=== PATIENT | female | born 2000 | race Caucasian/White ===

== ENCOUNTER 2023-07-30 19:26 | Emergency (ER) | payer MEDICARE, OTHER, MEDICAID, SELFPAY ==
[2023-07-30 19:34] VITALS: BP 112/70; PULSE 87; PULSE 96; RESP 17; TEMP 36.7; O2SAT 96; O2SAT 97; BMI 25.8
[2023-07-30 20:34] LABS: Hematocrit 40.5 % (37.0-47.0); Hemoglobin 13.4 g/dl (12.0-16.0); Mean Corpuscular HGB Conc 33.1 g/dl (31.0-35.0); Mean Corpuscular Hemoglobin 29.3 pg (27.0-33.0); Mean Corpuscular Volume 88.6 fL (80.0-98.0); Mean Platelet Volume 10.2 fL (9.4-12.3); Platelet Count 226 X10*3/uL (160-400); Red Blood Count 4.57 X10*6/uL (4.20-5.50); Red Cell Distribution Width 13.4 % (11.0-16.0); White Blood Count 8.7 X10*3/uL (4.8-10.8)
--- NOTE | 2023-07-30 20:49 | PC.NURSE ---
Patient is alert and oriented x2, she is not able to state today's date. Patient is calm and cooperative at present. VSS. 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 Patient denies nausea/vomiting/diarrhea. Patient denies SI/HI. She changed over by cryptographic technician in presence of security, belonging list completed. Patient denies SI/HI. Labs drawn and sent to lab. 1:1 sitter at bedside.
[2023-07-30 20:54] LABS: Anion Gap 17 (12-20); Blood Urea Nitrogen 15 mg/dL (9-16); Calcium 9.6 mg/dL (8.4-10.2); Carbon Dioxide 19 mmol/L (22-29); Chloride 107 mmol/L (96-108); Creatinine Clr Calc Pharmacy 99.2; Estimated Glomerular Filt Rate > 60; Glucose Random 79 mg/dL (60-115); Potassium 4.1 mmol/L (3.3-5.1); Sodium 139 mmol/L (135-145)
--- OUTSIDE RECORDS SUMMARY | 2023-07-30 21:18 | XMS_ITS | Continuity of Care Document ---
Author Name Unknown Organization [facility] Address Unknown Care Team Providers Care Bookseamer Blindstitch Name Role Phone Noé DELA CRUZ, Windy Primary Care Physician [facility]counter [facility] Date(s): 04/08/22 - 05/08/22 [facility] Allergies, Adverse Reactions, Alerts Substance Reaction Severity Status amoxicillin-clavulanate 1 Ac tive Augmentin Active Adderall Psychomotor restless ness 07-APR-2015 22:24:19<$> Active Depakote Active LamISIL hives Active ZyPREXA extreme weight gain Active 1rash Immunizations Given and Recorded Vaccine Date Status Refusal Reason influenza virus vaccine, inactivated 08/27/21 Demetrius rded influenza virus vaccine, inactivated 07/30/20 Demetrius rded influenza virus vaccine, inactivated 09/10/19 Demetrius rded influenza virus vaccine, inactivated 1 08/26/18 Gi lottie influenza virus vaccine, inactivated 08/24/17 Demetrius rded influenza virus vaccine, inactivated 2 10/04/16 Gi lottie influenza virus vaccine, inactivated 3 08/13/15 Gi lottie influenza virus vaccine, inactivated 4 11/04/14 Gi lottie influenza virus vaccine, inactivated 08/03/13 Give n influenza virus vaccine, inactivated 5 10/16/12 Gi lottie influenza virus vaccine, inactivated 6 09/18/11 Gi lottie tetanus/diphtheria/pertussis, acel(Tdap) 05/17/21 Given tetanus/diphtheria/pertussis, acel(Tdap) 06/08/20 Given SARS-CoV-2 (COVID-19) mRNA BNT-162b2 vac 01/26/21 Recorded SARS-CoV-2 (COVID-19) mRNA-1273 vaccine 01/05/21 R ecorded meningococcal group B vaccine 7 08/26/18 Given meningococcal group B vaccine 8 02/01/18 Given Meningococcal Conjugate Vaccine 2/3/15 Given Meningococcal Conjugate Vaccine 9 12/11/09 Given Human Papillomavirus Vaccine 06/22/13 Given Human Papillomavirus Vaccine 10 02/18/13 Given Human Papillomavirus Vaccine 11 12/21/12 Given Hepatitis A Pediatric Vaccine 12 12/21/12 Given Hepatitis A Pediatric Vaccine 13 12/17/11 Given influenza virus vaccine, live 08/27/10 Given Tet/Diphth/Acel, Pertussis (oldterm) 14 12/11/09 G iven Influenza Live (intranasal) (oldterm) 09/20/09 Giv en Influenza Virus Vaccine (oldterm) 08/17/08 Given Influenza Virus Vaccine (oldterm) 09/23/07 Given Influenza Virus Vaccine (oldterm) 09/10/06 Given Influenza Virus Vaccine (oldterm) 10/20/05 Given Influenza Virus Vaccine (oldterm) 09/12/05 Given Varicella Virus Vaccine 11/26/07 Given Varicella Virus Vaccine 01/08/00 Given Diphth/Pertussis,Acel/Tetanus (oldterm) 07/08/04 G iven Diphth/Pertussis,Acel/Tetanus (oldterm) 07/24/00 G iven Diphth/Pertussis,Acel/Tetanus (oldterm) 06/26/99 G iven Diphth/Pertussis,Acel/Tetanus (oldterm) 05/06/99 G iven Diphth/Pertussis,Acel/Tetanus (oldterm) 01/14/99 G iven Measles/Mumps/Rubella Virus Vaccine 11/18/00 Given Measles/Mumps/Rubella Virus Vaccine 03/03/00 Given Pneumococcal Vaccine (oldterm) 07/24/00 Given Poliovirus Vaccine, Inactivated 07/24/00 Given Poliovirus Vaccine, Inactivated 07/08/00 Given Poliovirus Vaccine, Inactivated 05/06/99 Given Poliovirus Vaccine, Inactivated 01/14/99 Given Haemophilus B Conj Vaccine (oldterm) 03/03/00 Give n Haemophilus B Conj Vaccine (oldterm) 06/26/99 Give n Haemophilus B Conj Vaccine (oldterm) 05/06/99 Give n Haemophilus B Conj Vaccine (oldterm) 01/14/99 Give n Hepatitis B Vaccine (old term) 09/02/99 Given Hepatitis B Vaccine (old term) 01/03/99 Given Hepatitis B Vaccine (old term) 15 98 Given 1Result Comment: [08/26/2018] Gilles Cullen NP fluzone quadrivalent no preservatives [id number] 2Result Comment: [10/04/2016] Maria Luisa Marin NP 3Result Comment: [08/13/2015] Ordered by LOBITO Epps 4Result Comment: [11/04/2014] Gilles Cullen DNP 5Admin Note: private vis given screening questions negative 6Admin Note: VIS 07/10/2009 GIVEN 7Result Comment: [08/26/2018] Gilles Cullen NP 8Result Comment: [02/01/2018] Sujata Sims MD 9Admin Note: VIS 12/27/2007 GIVEN 10Admin Note: VIS 01/01/07 GIVEN 11Admin Note: vis given 01/01/07 private 12Admin Note: vis given 09/23/2011 private state 13Admin Note: vis given. 09/23/2011 14Admin Note: VIS 06/10/2006 GIVEN 15Admin Note: [facility] Medications Abilify Tablet 15 mg, By Mouth, Daily, per Psych, Maintenance, 12/03/15 8:57:35 EST Start Date: 12/03/15 Status: Ordered Aleve 220 mg oral capsule 2 capsule = 440 mg, By Mouth, Once, PRN Pain , Moderate, # 40 capsule, 1 Refills, Soft Stop, 09/17/21 10:43:00 EDT, [facility], Partial fill upon patient request if the prescription is for a schedule II opioid drug., 165, cm, 06/0... Start Date: 09/17/21 Status: Ordered Atrovent HFA Inhaler 500 mcg, Neb, 4 times a day, Refills 0, Maintenance, 03/05/22 9:22:00 EDT Start Date: 03/05/22 Status: Ordered clonazePAM 0.5 mg oral tablet = 1 mg, By Mouth, 3 times a day, 0 Refills, Maintenance, 07/16/20 18:19:00 EDT, Tablet Start Date: 07/16/20 Status: Ordered Co Q-10 100 mg oral capsule 1 capsule = 100 mg, By Mouth, Daily, # 90 capsule, 0 Refills, Maintenance, 11/27/21 13:05:00 EST, [facility], Partial fill upon patient request if the prescription is for a schedule II opioid drug., 165, cm, 10/22/21 13:21:00 EST,... Start Date: 11/27/21 Status: Ordered CO Q-10 100 MG SOFTGEL CO Q-10 100 MG SOFTGEL, 1, capsule, By Mouth, Daily, # 28 capsule, 0 Refills, 165, cm, 01/14/22 9:19:00 EST, Height, 95, kg, 03/14/21 15:50:00 EDT, Dry Weight Start Date: 02/06/22 Status: Ordered CO Q-10 100 MG SOFTGEL CO Q-10 100 MG SOFTGEL, 1, capsule, By Mouth, Daily, # 28 capsule, 5 Refills, 165, cm, 03/05/22 9:10:00 EDT, Height, 95, kg, 03/14/21 15:50:00 EDT, Dry Weight Start Date: 04/04/22 Status: Ordered CO Q-10 100 MG SOFTGEL CO Q-10 100 MG SOFTGEL, 1, capsule, By Mouth, Daily, # 28 capsule, 0 Refills, 165, cm, 03/05/22 9:10:00 EDT, Height, 95, kg, 03/14/21 15:50:00 EDT, Dry Weight Start Date: 03/07/22 Status: Ordered Daily Cristina oral tablet 1 tablet, By Mouth, Daily at bedtime, # 28 tablet, 5 Refills, Maintenance, 02/06/22 12:18:00 EST, [facility], 0, 1 tablet By Mouth Daily at bedtime, 165, cm, 01/14/22 9:19:00 EST, Height, 95, kg, 03/14/21 15:50:00 EDT, Dry Weight Start Date: 02/06/22 Status: Ordered Flonase 50 mcg/inh nasal spray 2 sprays, Nares, Both, Daily in AM, # 15.8 mL, 3 Refills, Maintenance, 09/17/21 10:43:00 EDT, NasalSpray, [facility], 2 sprays Nares, Both Daily in AM,x90 days, 165, cm, 04/30/21 9:11:00 EDT, Height, 95, kg, 03/14/21 15:50:00 EDT, Dry Weight Start Date: 09/17/21 Stop Date: 09/12/22 Status: Ordered magnesium oxide 400 mg oral tablet 1 tablet = 400 mg, By Mouth, Daily, # 7 tablet, 0 Refills, Maintenance, 03/05/22 9:20:00 EDT, Tablet, Partial fill upon patient request if the prescription is for a schedule II opioid drug. Start Date: 03/05/22 Stop Date: 03/12/22 Status: Ordered magnesium oxide 400 mg oral tablet 1 tablet = 400 mg, By Mouth, Daily, for 30 days, # 30 tablet, 8 Refills, Acute 11/03/22 10:07:00 EST, 02/06/22 10:07:00 EST, Tablet, [facility], Partial fill upon patient request if the prescription is for a schedule II opioid drug., 165,... Start Date: 02/06/22 Stop Date: 11/03/22 Status: Ordered Melatonin = 7.5 mg, Daily at bedtime, 0 Refills, Maintenance, 10/23/20 14:49:00 EST, Partial fill upon patient request Start Date: 10/23/20 Status: Ordered melatonin 10 mg oral tablet, extended release 1 tablet = 10 mg, By Mouth, Daily at bedtime, PRN as needed for sleep, # 60 tablet, 0 Refills, Maintenance, 03/05/22 9:19:00 EDT, ER Tablet, Partial fill upon patient request if the prescription is for a schedule II opioid drug. Start Date: 03/05/22 Status: Ordered Metamucil 3.4 gm/5.2 gm oral powder for reconstitution = 1.7 Gm, By Mouth, 2 times a day, PRN as needed for constipation, # 1,042 Gm, 0 Refills, Maintenance, 01/17/22 14:34:00 EST, REC Powder, [facility], Partial fill upon patient requestif the prescription is for a schedule II opioid drug.,... Start Date: 01/17/22 Status: Ordered nystatin topical 990246 u/gm cream 1 application, Topically, 2 times a day, # 15 Gm, 0 Refills, Maintenance, 12/11/21 14:45:00 EST, Cream, [facility], Partial fill upon patient request if the prescription is for a schedule II opioid drug., 1 application Topically 2 times a... Start Date: 12/11/21 Status: Ordered omeprazole 20 mg oral enteric coated capsule 1 capsule, By Mouth, Daily, # 90 capsule, 1 Refills, Maintenance, 02/18/22 20:00:00 EDT, [facility], 165, cm, 01/14/22 9:19:00 EST, Height, 95, kg, 03/14/21 15:50:00 EDT, Dry Weight Start Date: 02/18/22 Status: Ordered ondansetron 4 mg oral tablet 1 tablet = 4 mg, By Mouth, Every 8 hours, # 12 tablet, 0 Refills, Maintenance, 03/05/22 9:17:00 EDT, Tablet, Partial fill upon patient request if the prescription is for a schedule II opioid drug. Start Date: 03/05/22 Status: Ordered riboflavin 400 mg oral capsule 1 capsule = 400 mg, By Mouth, Daily, # 30 capsule, 6 Refills, Maintenance, 02/06/22 9:36:00 EST, [facility], Partial fill upon patient request if the prescription is for a schedule IIopioid drug., 165, cm, 01/14/22 9:19:00 EST, Height, 95... Start Date: 02/06/22 Stop Date: 09/04/22 Status: Ordered Seasonique oral tablet 1 tablet, By Mouth, Daily, Please keep upcoming scheduled annual appointment, # 91 tablet, 3 Refills, Maintenance, 09/16/21 11:42:00 [facility], 1 tablet By Mouth Daily,Instr:Please keep upcoming scheduled annual appointment, 165, cm,... Start Date: 09/16/21 Status: Ordered selenium sulfide 2.5% topical lotion See Instructions, for skin rash q hs locally for rash as needed, # 60 mL, 0 Refills, Maintenance, 09/25/21 9:13:00 [facility], Partial fill upon patient request if the prescription is for a schedule II opioid drug., for skin rash q hs... Start Date: 09/25/21 Status: Ordered SUMAtriptan 50 mg oral tablet 1 tablet = 50 mg, By Mouth, Once, PRN for migraine headache, take at onset of bad migraine, no refill in under 30 days, # 9 tablet, 4 Refills, Soft Stop, 05/01/22 12:04:00 EDT, Tablet, [facility], Partial fill upon patient request if the p... Start Date: 05/01/22 Status: Ordered vitamin b2 gummies vitamin b2 gummies, Refills 0, Maintenance, 03/01/19 8:41:05 EDT, Compound Start Date: 03/01/19 Status: Ordered Vitamin C 500 mg oral tablet 2 tablet, By Mouth, Daily, AT 4PM., # 56 tablet, 3 Refills, [facility], 165, cm, 01/14/22 9:19:00 EST, Height, 95, kg, 03/14/21 15:50:00 EDT, Dry Weight Start Date: 02/06/22 Status: Ordered Vitamin D3 2000 intl units oral tablet 1 tablet, By Mouth, Daily in AM, # 28 tablet, 5 Refills, [facility], 165, cm, 01/14/22 9:19:00 EST, Height, 95, kg, 03/14/21 15:50:00 EDT, Dry Weight Start Date: 02/06/22 Status: Ordered Wedge Pillow Wedge Pillow, See Instructions, # 1 each, Refills 0, Tot. Refills 0, Maintenance, Wedge pillow, about 6 to 18 inches in height, per patient preference., 01/14/22 9:24:00 EST, Supply, 165, cm, 01/14/22 9:19:00 EST, Height, 95, kg, 03/14/21 15:50:00 EDT... Start Date: 01/14/22 Status: Ordered zinc (as acetate) 25 mg oral capsule 1 capsule = 25 mg, By Mouth, Daily, # 90 capsule, 0 Refills, Maintenance, 09/30/21 14:49:00 EDT, Capsule, [facility], Partial fill upon patient request if the prescription is for a schedule II opioid drug., 165, cm, 04/30/21 9:11:00 EDT, H... Start Date: 09/30/21 Status: Ordered Problem List Condition Effective Dates Status Health Status Inform ant Ataxia(Confirmed)(Stable) Active Bipolar illness(Confirmed) Active Learning disorder(Confirmed) Active Focal nodular hyperplasia of liver(Confirmed) Active Chronic GERD(Confirmed) Active Hypotonia(Confirmed)(Stable) Active Linear atelectasis(Confirmed) Active Migraine without aura(Confirmed) Active Mitochondrial disease(Confirmed) Active Obese class I(Confirmed) Active Sensory-neural hearing loss(Confirmed)(Stable) Active Fatty liver(Confirmed) Active Social History Social History Type Response Smoking Status Never (less than 100 in lifetime) entered on: 03/14/21 Sex
--- OUTSIDE RECORDS SUMMARY | 2023-07-30 21:18 | XMS_ITS | Continuity of Care Document ---
Author Name Unknown Organization [facility] Address [address] [place] [id number] Care Team Providers Care Java Development Team Lead Name Role Phone Nicolas DOWNS, Mayda Salguero Primary Care Physician [facility] Date[facility]s): 08/26/21 - 09/25/[address] [id number] Attending Physician: Con Rodriguez Admitting Physician: Con Rodriguez Referring Physician: AdmtrCon Allergies, Adverse Reactions, Alerts Substance Reaction Severity Status amoxicillin-clavulanate 1 Ac tive Augmentin Active Adderall Psychomotor restless ness 07-APR-2015 22:24:19<$> Active Depakote Active LamISIL hives Active ZyPREXA extreme weight gain Active 1rash Immunizations Given and Recorded Vaccine Date Status Refusal Reason tetanus/diphtheria/pertussis, acel(Tdap) 05/17/21 Given tetanus/diphtheria/pertussis, acel(Tdap) 06/08/20 Given SARS-CoV-2 (COVID-19) mRNA BNT-162b2 vac 01/26/21 Recorded SARS-CoV-2 (COVID-19) mRNA-1273 vaccine 01/05/21 R ecorded influenza virus vaccine, inactivated 07/30/20 Demetrius rded [...] virus vaccine, inactivated 6 09/18/11 Gi lottie meningococcal group B vaccine 7 08/26/18 Given meningococcal group B vaccine 8 02/01/18 Given Meningococcal Conjugate Vaccine 01/02/15 Given Meningococcal Conjugate Vaccine 9 12/11/09 Given [...] Gilles Cullen NP fluzone quadrivalent no preservatives [id number] 2Result Comment: [10/04/2016] Maria Luisa Marin NP [...] 14Admin Note: VIS 06/10/2006 GIVEN 15Admin Note: [facility] Medications Abilify Tablet 15 mg, By Mouth, Daily, per Psych, Maintenance, 12/03/15 8:57:35 EST Start Date: 12/03/15 Status: Ordered Aleve = 220 mg, By Mouth, Every 12 hours, 0 Refills, Maintenance, 04/30/21 9:14:00 EDT, Partial fill uponpatient request if the prescription is for a schedule II opioid drug. Start Date: 04/30/21 Status: Ordered Aleve 220 mg oral capsule 2 capsule = 440 mg, By Mouth, Once, PRN Pain , Moderate, # 40 capsule, 1 Refills, Soft Stop, 09/17/21 10:43:00 EDT, Capsule, [facility], Partial fill upon patient request if the prescription is for a schedule II opioid drug., 165, cm, 06/0... Start Date: 09/17/21 Status: Ordered cholecalciferol 2000 intl units oral tablet = 50 mcg, By Mouth, Daily, # 100 tablet, 0 Refills, Maintenance, 09/17/21 10:42:00 EDT, Tablet, [facility], Partial fill upon patient request if the prescription is for a schedule II opioid drug., 165, cm, 04/30/21 9:11:00 EDT, Height, 95,... Start Date: 09/17/21 Status: Ordered clonazePAM 0.5 mg oral tablet = 1 mg, By Mouth, 3 times a day, 0 Refills, Maintenance, 07/16/20 18:19:00 EDT, Tablet Start Date: 07/16/20 Status: Ordered Co Q-10 = 100 mg, By Mouth, Daily, 0 Refills, Maintenance, 03/14/21 15:51:00 EDT, Partial fill upon patientrequest if the prescription is for a schedule II opioid drug. Start Date: 03/14/21 Status: Ordered CoQ10 = 2,000 mg, By Mouth, Daily, 0 Refills, Maintenance, 10/23/20 14:47:00 EST, Partial fill upon patient request Start Date: 10/23/20 Status: Ordered cyanocobalamin 1000 mcg sublingual tablet 1 tablet = 1,000 mcg, Sublingual, 2 times a day, # 60 tablet, 3 Refills, Maintenance, 09/17/21 10:43:00 EDT, Tablet, [facility], Partial fill upon patient request if the prescription is for a schedule II opioid drug., 165, cm, 04/30/21 9:1... Start Date: 09/17/21 Status: Ordered Flonase 50 mcg/inh nasal spray 2 sprays, Nares, Both, Daily in AM, # 15.8 mL, 3 Refills, Maintenance, 09/17/21 10:43:00 EDT, NasalSpray, [facility], 2 sprays Nares, Both Daily in AM,x90 days, 165, cm, 04/30/21 9:11:00 EDT, Height, 95, kg, 03/14/21 15:50:00 EDT, Dry Weight Start Date: 09/17/21 Stop Date: 09/12/22 Status: Ordered lithium 300 mg oral tablet See Instructions, 450mg 2x AM &PM 150 Afternoon, 0 Refills, Maintenance, 07/16/20 18:21:00 EDT Start Date: 07/16/20 Status: Ordered Magnesium Carbonate = 54 mg, By Mouth, Daily, 0 Refills, Maintenance, 03/14/21 15:52:00 EDT, Partial fill upon patient request if the prescription is for a schedule II opioid drug. Start Date: 03/14/21 Status: Ordered magnesium oxide 400 mg oral tablet 1 tablet = 400 mg, By Mouth, Daily, for 30 days, # 30 tablet, 6 Refills, Acute 02/11/22 15:37:00 EDT, 07/16/21 15:37:00 EDT, Tablet, [id number], Partial fill upon patient request if the prescription is for a schedule II opioid drug., 165, cm,... Start Date: 07/16/21 Stop Date: 02/11/22 Status: Ordered Melatonin = 7.5 mg, Daily at bedtime, 0 Refills, Maintenance, 10/23/20 14:49:00 EST, Partial fill upon patient request Start Date: 10/23/20 Status: Ordered Metamucil Powder 1 pack/packet, By Mouth, Daily, 0 Refills, Maintenance, 12/13/19 10:56:00 EST, Powder Start Date: 12/13/19 Status: Ordered Multivitamin By Mouth, Daily, 0 Refills, Maintenance Start Date: 06/03/13 Status: Ordered omeprazole 20 mg oral enteric coated capsule 1 capsule, By Mouth, Daily, # 90 capsule, 1 Refills, Maintenance, 09/17/21 10:43:00 EDT, [facility], 165, cm, 04/30/21 9:11:00 EDT, Height, 95, kg, 03/14/21 15:50:00 EDT, Dry Weight Start Date: 09/17/21 Status: Ordered Seasonique oral tablet 1 tablet, By Mouth, Daily, Please keep upcoming scheduled annual appointment, # 91 tablet, 3 Refills, Maintenance, 09/16/21 11:42:00 EDT, [facility], 1 tablet By Mouth Daily,Instr:Please keep upcoming scheduled annual appointment, 165, cm,... Start Date: 09/16/21 Status: Ordered selenium sulfide 2.5% topical lotion See Instructions, for skin rash q hs locally for rash as needed, # 60 mL, 0 Refills, Maintenance, 09/25/21 9:13:00 EDT, [facility], Partial fill upon patient request if the prescription is for a schedule II opioid drug., for skin rash q hs... Start Date: 09/25/21 Status: Ordered SUMAtriptan 50 mg oral tablet 1 tablet = 50 mg, By Mouth, Daily, PRN for migraine headache, # 9 tablet, 6 Refills, Soft Stop, 11/08/20 8:21:00 EST, Tablet, [id number], increasing the dose, 165, cm, 10/23/20 14:38:00 EST, Height, 95.5, kg, 09/24/20 15:41:00 EDT, Dry Weight Start Date: 11/08/20 Stop Date: 06/06/21 Status: Ordered vitamin b2 gummies vitamin b2 gummies, Refills 0, Maintenance, 03/01/19 8:41:05 EDT, Compound Start Date: 03/01/19 Status: Ordered Vitamin C 500 mg oral tablet 2 tablet = 1,000 mg, By Mouth, Daily, # 60 tablet, 0 Refills, Maintenance, 09/17/21 10:42:00 EDT, Tablet, [facility], Partial fill upon patient request if the prescription is for a schedule II opioid drug., 165, cm, 04/30/21 9:11:00 EDT, H... Start Date: 09/17/21 Status: Ordered zinc (as acetate) 25 mg oral capsule 1 capsule = 25 mg, By Mouth, Daily, 0 Refills, Maintenance, 10/23/20 14:55:00 EST, Partial fill upon patient request Start Date: 10/23/20 Status: Ordered Problem List Condition Effective Dates Status Health Status Inform ant Ataxia(Confirmed)(Stable) Active Bipolar illness(Confirmed) Active Learning disorder(Confirmed) Active Fatigue(Confirmed)(Stable) Active Chronic GERD(Confirmed) Active Hypotonia(Confirmed)(Stable) Active Linear atelectasis(Confirmed) Active Migraine without aura(Confirmed) Active Mitochondrial disease(Confirmed) Active Onychomycosis(Confirmed) Active Encounter for preventive care(Confirmed) Active RUQ abdominal pain(Confirmed) Active Sensory-neural hearing loss(Confirmed)(Stable) Active Social History Social History Type Response Smoking Status Never (less than 100 in lifetime) entered on: 03/14/21 Sex
--- OUTSIDE RECORDS SUMMARY | 2023-07-30 21:18 | XMS_ITS | Continuity of Care Document ---
Author Name Unknown Organization [facility] Address [address] [facility], [address]r d Floor, [address] [place] [phone]- Care Team Providers Care Waste Machine Tender Name Role Phone Mayda Valenzuela MD Primary Care Physician [place] [facility] [place] 12/13/20 - 12/20/20 [facility] [address], [address], [address] [place] [address]- Attending Physician: Sofia Felix MD Referring Physician: Mayda Valenzuela MD Allergies, Adverse Reactions, Alerts Substance Reaction Severity Status amoxicillin-clavulanate 1 Ac tive Adderall Psychomotor restless ness 07-APR-2015 22:24:19<$> Active Depakote Active LamISIL hives Active ZyPREXA extreme weight gain Active 1rash Immunizations Given and Recorded Vaccine Date Status Refusal Reason tetanus/diphtheria/pertussis, acel(Tdap) 06/08/20 Given meningococcal group B vaccine 1 08/26/18 Given meningococcal group B vaccine 2 02/01/18 Given influenza virus vaccine, inactivated 3 08/26/18 Gi lottie influenza virus vaccine, inactivated 4 10/04/16 Gi lottie influenza virus vaccine, inactivated 5 08/13/15 Gi lottie influenza virus vaccine, inactivated 6 11/04/14 Gi lottie influenza virus vaccine, inactivated 08/03/13 Give n influenza virus vaccine, inactivated 7 10/16/12 Gi lottie influenza virus vaccine, inactivated 8 09/18/11 Gi lottie Meningococcal Conjugate Vaccine 01/02/15 Given Meningococcal Conjugate [...] Given 1Result Comment: [08/26/2018] Gilles Cullen NP 2Result Comment: [02/01/2018] Sujata Sims MD 3Result Comment: [08/26/2018] Gilles Cullen NP fluzone quadrivalent no preservatives [id number] 4Result Comment: [10/04/2016] Maria Luisa Marin CHEESE MAKER 5Result Comment: [08/13/2015] Ordered by LOBITO Epps 6Result Comment: [11/04/2014] Gilles Cullen DNP 7Admin Note: private vis given screening questions negative 8Admin Note: VIS 07/10/2009 GIVEN 9Admin Note: VIS 12/27/2007 GIVEN 10Admin Note: VIS 01/01/07 GIVEN 11Admin Note: vis given 01/01/07 private 12Admin Note: vis given 09/23/2011 private state 13Admin Note: vis given. 09/23/2011 14Admin Note: VIS 06/10/2006 GIVEN 15Admin Note: [facility] Medications Abilify Tablet 15 mg, By Mouth, Daily, per Psych, Maintenance, 12/03/15 8:57:35 EST Start Date: 12/03/15 Status: Ordered Aleve 220 mg oral capsule 2 capsule = 440 mg, By Mouth, Once, 0 Refills, Maintenance, 10/23/20 14:46:00 EST, Capsule, Partialfill upon patient request Start Date: 10/23/20 Status: Ordered clonazePAM 0.5 mg oral tablet = 1 mg, By Mouth, 3 times a day, 0 Refills, Maintenance, 07/16/20 18:19:00 EDT, Tablet Start Date: 07/16/20 Status: Ordered CoQ10 = 2,000 mg, By Mouth, Daily, 0 Refills, Maintenance, 10/23/20 14:47:00 EST, Partial fill upon patient request Start Date: 10/23/20 Status: Ordered Flonase 50 mcg/inh nasal spray 1 sprays = 50 mcg, Nares, Both, Daily in AM, # 15.8 mL, 1 Refills, Maintenance, 10/07/18 15:51:43 EST, Nasal [place] Start Date: 10/07/18 Stop Date: 04/05/19 Status: Ordered lithium 300 mg oral tablet See Instructions, 450mg 2x AM &PM 150 Afternoon, 0 Refills, Maintenance, 07/16/20 18:21:00 EDT Start Date: 07/16/20 Status: Ordered Melatonin = 7.5 mg, Daily at bedtime, 0 Refills, Maintenance, 10/23/20 14:49:00 EST, Partial fill upon patient request Start Date: 10/23/20 Status: Ordered Metamucil Powder 1 pack/packet, By Mouth, Daily, 0 Refills, Maintenance, 12/13/19 10:56:00 EST, Powder Start Date: 12/13/19 Status: Ordered MiraLax = 17 Gm, By Mouth, Daily, 0 Refills, Maintenance, 07/16/20 18:22:00 EDT Start Date: 07/16/20 Status: Ordered Multivitamin By Mouth, Daily, 0 Refills, Maintenance Start Date: 06/03/13 Status: Ordered omeprazole 20 mg oral delayed release tablet 1 tablet = 20 mg, By Mouth, Daily, # 30 tablet, 2 Refills, Maintenance, 11/17/20 13:07:00 EST, EC Tablet, [facility]/pharmacy #[id number], 165, cm, 10/23/20 14:38:00 EST, Height, 95.5, kg, 09/24/20 15:41:00 EDT, Dry Weight Start Date: 11/17/20 Status: Ordered Seasonique oral tablet 1 tablet, By Mouth, Daily, Please keep upcoming scheduled annual appointment, # 91 tablet, 4 Refills, Maintenance, 01/02/20 14:53:00 EST, [id number], 1 tablet By Mouth Daily,Instr:Please keepupcoming scheduled annual appointment, 166, cm, ... Start Date: 01/02/20 Status: Ordered SUMAtriptan 50 mg oral tablet 1 tablet = 50 mg, By Mouth, Daily, PRN for migraine headache, # 9 tablet, 6 Refills, Soft Stop, 11/08/20 8:21:00 EST, Tablet, [facility]/pharmacy #[id number], increasing the dose, 165, cm, 10/23/20 14:38:00 EST, Height, 95.5, kg, 09/24/20 15:41:00 EDT, Dry Weight Start Date: 11/08/20 Stop Date: 06/06/21 Status: Ordered Vitamin B12 = 1,000 mcg, 2 times a day, 0 Refills, Maintenance, 08/04/19 10:32:43 EDT Start Date: 08/04/19 Status: Ordered vitamin b2 gummies vitamin b2 gummies, Refills 0, Maintenance, 03/01/19 8:41:05 EDT, Compound Start Date: 03/01/19 Status: Ordered Vitamin C 500 mg oral tablet 2 tablet = 1,000 mg, By Mouth, Daily, # 30 tablet, 0 Refills, Maintenance, 07/16/20 18:22:00 EDT, Tablet Start Date: 07/16/20 Status: Ordered Vitamin D3 = 50 mcg, By Mouth, Daily, 0 Refills, Maintenance, 10/23/20 14:53:00 EST, Partial fill upon patientrequest Start Date: 10/23/20 Status: Ordered zinc (as acetate) 25 mg oral capsule 1 capsule = 25 mg, By Mouth, Daily, 0 Refills, Maintenance, 10/23/20 14:55:00 EST, Partial fill upon patient request Start Date: 10/23/20 Status: Ordered Zithromax Z-Kamran 250 mg oral tablet 1 pack/packet, By Mouth, Once, as directed on package labeling. 2 tablets first day, then one p.o daily, # 6 tablet, 0 Refills, Soft Stop, 08/28/20 8:08:00 EDT, Tablet, [facility]/pharmacy #[id number], 165, cm, 08/14/20 10:25:00 EDT, Height, 95, kg, 07/18/20 14:03... Start Date: 08/28/20 Status: Ordered Problem List Condition Effective Dates Status Health Status Inform ant Ataxia(Confirmed)(Stable) Active Bipolar illness(Confirmed) Active Learning disorder(Confirmed) Active Fatigue(Confirmed)(Stable) Active Chronic GERD(Confirmed) Active Hypotonia(Confirmed)(Stable) Active Linear atelectasis(Confirmed) Active Migraine without aura(Confirmed) Active Mitochondrial disease(Confirmed) Active Onychomycosis(Confirmed) Active Encounter for preventive care(Confirmed) Active RUQ abdominal pain(Confirmed) Active Sensory-neural hearing loss(Confirmed)(Stable) Active
--- OUTSIDE RECORDS SUMMARY | 2023-07-30 21:18 | XMS_ITS | Continuity of Care Document ---
Author Name Unknown Organization [facility] Address [address] [facility], [address] [place] [address]- Care Team Providers Care Aircraft Pneudraulic Systems Mechanic Name Role Phone Noé DELA CRUZ, Windy Primary Care Physician Encounter [facility] Date(s): 02/13/22 - 03/15/22 [facility] [address] [facility], [address] [place] [address]- Allergies, Adverse Reactions, Alerts Substance Reaction Severity [...] Gilles Cullen NP fluzone quadrivalent no preservatives [id number] 2Result Comment: [10/04/2016] Maria Luisa Marin NP [...] 14Admin Note: VIS 06/10/2006 GIVEN 15Admin Note: [facility] Medications Abilify Tablet 15 mg, By [...] capsule, 0 Refills, Maintenance, 11/27/21 13:05:00 EST, Capsule, [facility], Partial fill upon [...] Start Date: 01/17/22 Status: Ordered nystatin topical 383664 u/gm cream 1 application, Topically, 2 times [...] 1 Refills, Maintenance, 02/18/22 20:00:00 EDT, [facility], 165, cm, 01/14/22 9:19:00 EST, Height, [...] 6 Refills, Maintenance, 02/06/22 9:36:00 EST, [facility], Partial fill upon patient [...] q hs... Start Date: 09/25/21 Status: Ordered vitamin b2 gummies vitamin b2 gummies, Refills 0, Maintenance, 03/01/19 8:41:05 EDT, Compound Start Date: 03/01/19 Status: Ordered Vitamin C 500 mg oral tablet 2 tablet, By Mouth, Daily, AT 4PM., # 56 tablet, 3 Refills, [facility], 165, cm, 01/14/22 9:19:00 EST, Height, 95, kg, 03/14/21 15:50:00 EDT, Dry Weight Start Date: 02/06/22 Status: Ordered Vitamin D3 2000 intl units oral tablet 1 tablet, By Mouth, Daily in AM, # 28 tablet, 5 Refills, [facility], 165, cm, 01/14/22 9:19:00 EST, Height, 95, [...]
--- OUTSIDE RECORDS SUMMARY | 2023-07-30 21:18 | XMS_ITS | Continuity of Care Document ---
Author Name Unknown Organization [facility] Address [address] [facility], [address] Floor, [address] [place] [address]- Care Team Providers Care Faculty Neuropsychologist Name Role Phone Mayda Valenzuela MD Primary Care Physician [place] [facility] [place] 11[place]20 - 11/15/20 [facility] [address], [address], [address] [place] [address]- Attending Physician: Sofia Felix MD Referring Physician: [...] Gilles Cullen NP fluzone quadrivalent no preservatives [id number] 4Result Comment: [10/04/2016] Maria Luisa Marin TECHNICAL DIRECTOR 5Result Comment: [08/13/2015] Ordered by LOBITO Epps 6Result Comment: [11/04/2014] Gilles Cullen DNP 7Admin Note: private vis given screening questions negative 8Admin Note: VIS 07/10/2009 GIVEN 9Admin Note: VIS 12/27/2007 GIVEN 10Admin Note: VIS 01/01/07 GIVEN 11Admin Note: vis given 01/01/07 private 12Admin Note: vis given 09/23/2011 private state 13Admin Note: vis given. 09/23/2011 14Admin Note: VIS 06/10/2006 GIVEN 15Admin Note: [facility] Medications Abilify Tablet 15 mg, By Mouth, Daily, per Psych, Maintenance, 12/03/15 8:57:35 EST Start Date: 12/03/15 Status: Ordered Aleve 220 mg oral capsule 2 capsule = 440 mg, By Mouth, Once, 0 Refills, Maintenance, 10/23/20 14:46:00 EST, Capsule, Partialfill upon patient request Start Date: 10/23/20 Status: Ordered clonazePAM 0.5 mg oral tablet 1 tablet = 0.5 mg, By Mouth, 2 times a day, 0 Refills, Maintenance, 07/16/20 18:19:00 EDT, Tablet Start Date: 07/16/20 Status: Ordered CoQ10 = 2,000 mg, By Mouth, Daily, 0 Refills, Maintenance, 10/23/20 14:47:00 EST, Partial fill upon patient request Start Date: 10/23/20 Status: Ordered Flonase 50 mcg/inh nasal spray 1 sprays = 50 mcg, Nares, Both, Daily in AM, # 15.8 mL, 1 Refills, Maintenance, 10/07/18 15:51:43 EST, Nasal [place] Start Date: 10/07/18 Stop Date: 04/05/19 Status: Ordered lithium 300 mg oral tablet 1 tablet = 300 mg, By Mouth, 2 times a day, 0 Refills, Maintenance, 07/16/20 18:21:00 EDT Start [...] Daily, # 30 tablet, 0 Refills, Maintenance, 10/08/20 8:28:00 EST, EC Tablet, [facility]/pharmacy #[id number], 165, cm, 09/24/20 15:41:00 EDT, Height, 95.5, kg, 09/24/20 15:41:00 EDT, Dry Weight Start Date: 10/08/20 Status: Ordered Seasonique oral tablet 1 tablet, By Mouth, Daily, Please keep upcoming scheduled annual appointment, # 91 tablet, 4 Refills, Maintenance, 01/02/20 14:53:00 EST, [facility]/pharmacy #[id number], 1 tablet By Mouth Daily,Instr:Please keepupcoming scheduled annual appointment, 166, cm, ... Start Date: 01/02/20 Status: Ordered SUMAtriptan 50 mg oral tablet 1 tablet = 50 mg, By Mouth, Daily, PRN for migraine headache, # 9 tablet, 6 Refills, Soft Stop, 11/08/20 8:21:00 EST, Tablet, [facility]/pharmacy #[id number], increasing the dose, 165, cm, 10/23/20 [...] Refills, Soft Stop, 08/28/20 8:08:00 EDT, Tablet, [facility]/pharmacy #[id number], 165, cm, 08/14/20 10:25:00 EDT, Height, [...]
--- OUTSIDE RECORDS SUMMARY | 2023-07-30 21:18 | XMS_ITS | Continuity of Care Document ---
Author Name Unknown Organization [facility] Address [address] [place] [address]- Care Team Providers Care Nuclear Equipment Operator Name Role Phone Noé DELA CRUZ, Windy Primary Care Physician Encounter [facility] [place] Date(s): 04/18/22 - 05/18/[address] [address] Attending Physician: Con Rodriguez Admitting Physician: AdmCon tang Referring Physician: Admtr, ArAshvin Allergies, Adverse Reactions, Alerts Substance Reaction Severity Status amoxicillin-clavulanate 1 Ac tive Augmentin Active Adderall Psychomotor restless ness 07-APR-2015 22:24:19<$> Active Depakote Active LamISIL hives Active ZyPREXA extreme weight gain Active SEROquel 2 Active 1rash 2elevates liver enzymes Immunizations Given and Recorded Vaccine Date Status [...] Gilles Cullen NP fluzone quadrivalent no preservatives [id number] 2Result Comment: [10/04/2016] Maria Luisa Marin NP [...] 14Admin Note: VIS 06/10/2006 GIVEN 15Admin Note: [facility] Medications Abilify Tablet 15 mg, By Mouth, Daily, per Psych, Maintenance, 12/03/15 8:57:35 EST Start Date: 12/03/15 Status: Ordered Aleve 220 mg oral capsule 2 capsule = 440 mg, By Mouth, Once, PRN Pain , Moderate, # 40 capsule, 1 Refills, Soft Stop, 09/17/21 10:43:00 EDT, Capsule, [facility], Partial fill [...] Start Date: 01/17/22 Status: Ordered nystatin topical 845267 u/gm cream 1 application, Topically, 2 times [...] capsule, 0 Refills, Maintenance, 09/30/21 14:49:00 EDT, [facility], Partial fill [...]
--- OUTSIDE RECORDS SUMMARY | 2023-07-30 21:18 | XMS_ITS | Continuity of Care Document ---
Author Name Unknown Organization [facility] Address [address] [facility], [address]t [place] [address]- Care Team Providers Care Dental Equipment Mechanic Name Role Phone Nicolas DOWNS, Mayda Salguero Primary Care Physician [place] [facility] [place]14[place]21 - 04/13/21 [facility] [employer] [address] [facility], [address] [place], [place] [address] Attending Physician: Con Rodriguez Admitting Physician: AdmCon tang Referring Physician: AdmtrCon Allergies, Adverse Reactions, Alerts [...] Gilles Cullen NP fluzone quadrivalent no preservatives [id number] 4Result Comment: [10/04/2016] Maria Luisa Marin NP 5Result Comment: [08/13/2015] Ordered by LOBITO Epps 6Result Comment: [11/04/2014] Gilles Cullen DNP 7Admin Note: private vis given screening questions negative 8Admin Note: VIS 07/10/2009 GIVEN 9Admin Note: VIS 12/27/2007 GIVEN 10Admin Note: VIS 01/01/07 GIVEN 11Admin Note: vis given 01/01/07 private 12Admin Note: vis given 09/23/2011 private state 13Admin Note: vis given. 09/23/2011 14Admin Note: VIS 06/10/2006 GIVEN 15Admin Note: [facility] Medications Abilify Tablet 15 mg, [...] AM, # 15.8 mL, 3 Refills, Maintenance, 02/12/21 13:51:00 EDT, NasalSpray, [facility]/pharmacy #[id number], 2 sprays Nares, Both Daily in AM,x90 days, 165, cm, 10/23/20 14:38:00 EST, Height, 95.5, kg, 09/24/20 15:41:00 EDT, Dry Weight Start Date: 02/12/21 Stop Date: 02/07/22 Status: Ordered lithium 300 mg oral tablet See Instructions, 450mg 2x AM &PM 150 Afternoon, 0 Refills, Maintenance, 07/16/20 18:21:00 EDT Start Date: 07/16/20 Status: Ordered Magnesium Carbonate = 54 mg, By Mouth, Daily, 0 Refills, Maintenance, 03/14/21 15:52:00 EDT, Partial fill upon patient request if the prescription is for a schedule II opioid drug. Start Date: 03/14/21 Status: Ordered Melatonin = 7.5 mg, Daily [...] Daily, # 30 tablet, 2 Refills, Maintenance, 02/24/21 17:36:00 EDT, EC Tablet, [facility]/pharmacy #[id number], 165, cm, 10/23/20 14:38:00 EST, Height, 95.5, kg, 09/24/20 15:41:00 EDT, Dry Weight Start Date: 02/24/21 Status: Ordered Seasonique oral tablet 1 tablet, By Mouth, Daily, Please keep upcoming scheduled annual appointment, # 91 tablet, 3 Refills, Maintenance, 03/14/21 15:58:00 EDT, [facility]/pharmacy #[id number], 1 tablet By Mouth Daily,Instr:Please keepupcoming scheduled annual appointment, 165, cm, 04/... Start Date: 03/14/21 Status: Ordered SUMAtriptan 50 mg oral tablet 1 tablet = 50 mg, By Mouth, Daily, PRN for migraine headache, # 9 tablet, 6 Refills, Soft Stop, 11/08/20 8:21:00 EST, Tablet, [facility]/pharmacy #[id number], increasing the dose, 165, cm, 10/23/20 [...] Refills, Soft Stop, 08/28/20 8:08:00 EDT, Tablet, [facility]/pharmacy #[id number], 165, cm, 08/14/20 10:25:00 EDT, Height, [...]
--- OUTSIDE RECORDS SUMMARY | 2023-07-30 21:18 | XMS_ITS | Continuity of Care Document ---
Author Name Unknown Organization [facility] Address [address] [place] [address]- Care Team Providers Care Hazardous Materials Analyst Name Role Phone Tomasa DOWNS, Ulises Primary Care Physici an Encounter [facility] [place] Date(s): 01/09/22 - 02/09/22 [facility] [address] [address] Attending Physician: Soumya Campos MD Admitting Physician: Soumya Campos MD Referring Physician: Ulises Randolph MD Allergies, Adverse Reactions, Alerts Substance Reaction Severity Status amoxicillin-clavulanate 1 Ac tive Augmentin Active Adderall Psychomotor restless ness 07-APR-2015 22:24:19<$> Active ZyPREXA extreme weight gain Active Depakote Active LamISIL hives Active 1rash Immunizations Given and Recorded Vaccine [...] Gilles Cullen NP fluzone quadrivalent no preservatives [id number] 2Result Comment: [10/04/2016] Maria Luisa Marin NP [...] 14Admin Note: VIS 06/10/2006 GIVEN 15Admin Note: [facility] Medications Abilify Tablet 15 mg, By Mouth, [...] cm, 06/0... Start Date: 09/17/21 Status: Ordered clonazePAM 0.5 [...] Dry Weight Start Date: 02/06/22 Status: Ordered Daily Cristina oral tablet 1 [...] Date: 09/17/21 Stop Date: 09/12/22 Status: Ordered ipratropium nasal 21 mcg/inh spray 2 sprays, Nares, Both, 2 times a day, # 30 mL, 1 Refills, Acute 02/11/22 9:24:00 EDT, 01/14/22 9:23:00 EST, [place], [facility], Partial fill upon patient request if the prescription isfor a schedule II opioid drug., 2 sprays Nares, Both 2... Start Date: 01/14/22 Stop Date: 02/11/22 Status: Ordered magnesium oxide 400 mg oral [...] request Start Date: 10/23/20 Status: Ordered Metamucil 3.4 gm/5.2 gm oral powder for reconstitution = 1.7 Gm, By Mouth, 2 times a day, PRN as needed for constipation, # 1,042 Gm, 0 Refills, Maintenance, 01/17/22 14:34:00 EST, REC Powder, [facility], Partial fill upon patient requestif the prescription is for a schedule II opioid drug.,... Start Date: 01/17/22 Status: Ordered nystatin topical 880601 u/gm cream 1 application, Topically, 2 times [...] Dry Weight Start Date: 09/17/21 Status: Ordered riboflavin 400 mg oral capsule [...] 4PM., # 56 tablet, 3 Refills, [facility], 165, cm, 01/14/22 9:19:00 EST, Height, 95, kg, 03/14/21 15:50:00 EDT, Dry Weight Start Date: 02/06/22 Status: Ordered Vitamin D3 2000 intl units oral tablet 1 tablet, By Mouth, Daily in AM, # 28 tablet, 5 Refills, [facility], 165, cm, 01/14/22 9:19:00 EST, Height, 95, [...]
--- OUTSIDE RECORDS SUMMARY | 2023-07-30 21:18 | XMS_ITS | Continuity of Care Document ---
Author Name Unknown Organization [facility] Address [address] [facility], [address] [place] [address]- Care Team Providers Care Hand Candy Cutter Name Role Phone Nicolas DOWNS, Mayda Salguero Primary Care Physician Encounter [facility] Date(s): 12/27/20 - 01/26/21 [facility] [address] [facility], [address] [place], [place] [address] Allergies, Adverse Reactions, Alerts Substance Reaction Severity [...] Gilles Cullen NP fluzone quadrivalent no preservatives [id number] 4Result Comment: [10/04/2016] Maria Luisa Marin CREMATOR 5Result Comment: [08/13/2015] Ordered by LOBITO Epps 6Result Comment: [11/04/2014] Gilles Cullen DNP 7Admin Note: private vis given screening questions negative 8Admin Note: VIS 07/10/2009 GIVEN 9Admin Note: VIS 12/27/2007 GIVEN 10Admin Note: VIS 01/01/07 GIVEN 11Admin Note: vis given 01/01/07 private 12Admin Note: vis given 09/23/2011 private state 13Admin Note: vis given. 09/23/2011 14Admin Note: VIS 06/10/2006 GIVEN 15Admin Note: [facility] Medications Abilify Tablet 15 mg, By [...] 1 Refills, Maintenance, 10/07/18 15:51:43 EST, Nasal [place] Start Date: 10/07/18 Stop Date: 04/05/19 Status: [...] Refills, Maintenance, 11/17/20 13:07:00 EST, EC Tablet, [facility]/pharmacy #[id number], 165, cm, 10/23/20 14:38:00 EST, [...] Refills, Soft Stop, 11/08/20 8:21:00 EST, Tablet, [facility]/pharmacy #[id number], increasing the dose, 165, cm, [...] Refills, Soft Stop, 08/28/20 8:08:00 EDT, Tablet, [facility]/pharmacy #[id number], 165, cm, 08/14/20 10:25:00 EDT, [...]
--- OUTSIDE RECORDS SUMMARY | 2023-07-30 21:18 | XMS_ITS | Continuity of Care Document ---
Author Name Unknown Organization [facility] Address [address] [place] [address]- Care Team Providers Care Masonry Installer Name Role Phone Noé DELA CRUZ, Windy Primary Care Physician Encounter [facility] Date(s): 04/23/22 - 05/23/22 [facility] [address] [id number] Allergies, Adverse Reactions, Alerts Substance Reaction Severity [...] Gilles Cullen NP fluzone quadrivalent no preservatives [id number] 2Result Comment: [10/04/2016] Maria Luisa Marin NP [...] 14Admin Note: VIS 06/10/2006 GIVEN 15Admin Note: [facility] Medications Abilify Tablet 15 mg, By [...] 3 times a day, 0 Refills, Maintenance, 08/17/20 18:19:00 EDT, Tablet Start Date: 07/16/20 Status: [...] Start Date: 01/17/22 Status: Ordered nystatin topical 478790 u/gm cream 1 application, Topically, 2 times [...] 30 capsule, 6 Refills, Maintenance, 02/06/22 9:36:[facility], Partial fill upon patient request if the prescription is for a schedule IIopioid drug., 165, cm, 01/14/22 9:19:00 EST, Height, 95... Start Date: 02/06/22 Stop Date: 09/04/22 Status: Ordered Seasonique oral tablet 1 tablet, By Mouth, Daily, Please keep upcoming scheduled annual appointment, # 91 tablet, 3 Refills, Maintenance, 09/16/21 11:42:[facility], 1 tablet By Mouth Daily,Instr:Please [...] II opioid drug., 165, cm, 04/30/21 9:11:00 Kenny MCKEON. Start Date: 09/30/21 Status: Ordered Problem List [...]
--- OUTSIDE RECORDS SUMMARY | 2023-07-30 21:18 | XMS_ITS | Continuity of Care Document ---
Author Name Unknown Organization [facility] Address [address] [place] [phone]- Care Team Providers Care Import And Export Clerk Name Role Phone Nicolas DOWNS, Mayda Salguero Primary Care Physician Encounter [facility] Date(s): 08/22/21 - 09/21/21 [facility] [address] [place] [id number]- [place] Allergies, Adverse Reactions, Alerts Substance Reaction Severity [...] Gilles Cullen NP fluzone quadrivalent no preservatives [id number] 2Result Comment: [10/04/2016] Maria Luisa Marin NP [...] 14Admin Note: VIS 06/10/2006 GIVEN 15Admin Note: [facility] Medications Abilify Tablet 15 mg, [...] a schedule II opioid drug., 165, cm, ... Start Date: 09/17/21 Status: Ordered cholecalciferol 2000 [...] tablet, 3 Refills, Maintenance, 09/17/21 10:43:00 EDT, [facility], Partial fill upon patient request [...] 02/11/22 15:37:00 EDT, 07/16/21 15:37:00 EDT, Tablet, [facility]/pharmacy #[id number], Partial fill upon patient request if the prescription is for a schedule II opioid drug., 165, cm,... Start Date: 07/16/21 Stop Date: 02/11/22 Status: Ordered Melanol = 7.5 mg, Topically, 2 times a day, 0 Refills, Maintenance, 04/30/21 9:13:00 EDT, Partial fill uponpatient request if the prescription is for a schedule II opioid drug. Start Date: 04/30/21 Status: Ordered Melatonin = 7.5 mg, Daily [...] 165, cm,... Start Date: 09/16/21 Status: Ordered SUMAtriptan 50 mg oral tablet 1 tablet = 50 mg, By Mouth, Daily, PRN for migraine headache, # 9 tablet, 6 Refills, Soft Stop, 11/08/20 8:21:00 EST, Tablet, [id number], increasing the dose, 165, cm, 10/23/20 14:38:00 EST, Height, 95.5, kg, 09/24/20 15:41:00 EDT, Dry Weight Start Date: 11/08/20 Stop Date: 06/06/21 Status: Ordered Tylenol 325 mg oral tablet 650 mg, 2, tablet, By Mouth, Every 4 hours, PRN, # 50 tablet, Refills 0, Tot. Refills 0, Acute 09/23/21 10:43:00 EDT, for fever, 09/17/21 10:42:00 EDT, Route to Pharmacy Electronically, [facility], Partial fill upon patient request if the... Start Date: 09/17/21 Stop Date: 09/23/21 Status: Ordered vitamin b2 gummies vitamin b2 [...]
--- OUTSIDE RECORDS SUMMARY | 2023-07-30 21:18 | XMS_ITS | Continuity of Care Document ---
Author Name Unknown Organization [facility] Address [address] [place] [phone]- Care Team Providers Care Freight Traffic Consultant Name Role Phone Mayda Valenzuela MD Primary Care Physician Encounter [facility] [place] [place] Date(s): 12/21/19 - 04/19/20 [facility] [address] [place] [phone]- [facility] Attending Physician: Mena Mancera NP Admitting Physician: Mena Mancera NP Referring Physician: Mayda Valenzuela MD Allergies, Adverse Reactions, Alerts Substance Reaction Severity Status Adderall Psychomotor restlessness 07-APR-2015 22:2 4:19<$> Active LamISIL hives Active ZyPREXA extreme weight gain Active Immunizations Given and Recorded Vaccine Date Status Refusal Reason meningococcal group B vaccine 1 08/26/18 Given meningococcal group B vaccine 2 02/01/18 Given influenza virus vaccine, inactivated 3 08/26/18 Gi lottie influenza virus vaccine, inactivated 4 10/04/16 Gi lotite influenza virus vaccine, inactivated 5 08/13/15 Gi [...] Gilles Cullen NP fluzone quadrivalent no preservatives [id number] 4Result Comment: [10/04/2016] Maria Luisa Tomas ELECTROTYPER APPRENTICE 5Result Comment: [08/13/2015] Ordered by LOBITO Epps 6Result Comment: [11/04/2014] Gilles Cullen DNP 7Admin Note: private vis given screening questions negative 8Admin Note: VIS 07/10/2009 GIVEN 9Admin Note: VIS 12/27/2007 GIVEN 10Admin Note: VIS 01/01/07 GIVEN 11Admin Note: vis given 01/01/07 private 12Admin Note: vis given 09/23/2011 private state 13Admin Note: vis given. 09/23/2011 14Admin Note: VIS 06/10/2006 GIVEN 15Admin Note: [facility] Medications Abilify Tablet 15 mg, By Mouth, 2 times a day, per Psych, Maintenance, 12/03/15 8:57:35 EST Start Date: 12/03/15 Status: Ordered clonazePAM 1 mg oral tablet 1 tablet = 1 mg, By Mouth, 2 times a day, 0 Refills, Maintenance, 02/14/19 15:49:34 EDT, Tablet Start Date: 02/14/19 Status: Ordered Depakote 250 mg oral enteric coated tablet 1 tablet = 250 mg, By Mouth, 2 times a day, 0 Refills, Maintenance, 03/19/20 15:12:00 EDT Start Date: 03/19/20 Status: Ordered Flonase 50 mcg/inh nasal spray 1 sprays = 50 mcg, Nares, Both, Daily in AM, # 15.8 mL, 1 Refills, Maintenance, 10/07/18 15:51:43 EST, Nasal [place] Start Date: 10/07/18 Stop Date: 04/05/19 Status: Ordered magnesium oxide 400 mg oral tablet 1 tablet = 400 mg, By Mouth, Daily, for 30 days, # 30 tablet, 6 Refills, Acute 11/13/20 9:06:00 EST, 04/17/20 9:06:00 EDT, Tablet, [facility]/pharmacy #[id number], 166, cm, 01/02/20 13:06:00 EST, Height, 91, kg, 12/13/19 15:40:00 EST, Dry Weight Start Date: 04/17/20 Stop Date: 11/13/20 Status: Ordered Metamucil Powder 1 pack/packet, By Mouth, Daily, 0 Refills, Maintenance, 12/13/19 10:56:00 EST, Powder Start Date: 12/13/19 Status: Ordered Multivitamin By Mouth, Daily, 0 Refills, Maintenance Start Date: 06/03/13 Status: Ordered omeprazole 20 mg oral enteric coated capsule 1 capsule = 20 mg, By Mouth, 2 times a day, # 180 capsule, 3 Refills, Maintenance, 01/18/20 11:59:00 EST, [facility]/pharmacy #[id number], 166, cm, 01/02/20 13:06:00 EST, Height, 91, kg, 12/13/19 15:40:00 EST, Dry Weight Start Date: 01/18/20 Status: Ordered Seasonique oral tablet 1 tablet, By Mouth, Daily, Please keep upcoming scheduled annual appointment, # 91 tablet, 4 Refills, Maintenance, 01/02/20 14:53:00 EST, [facility]/pharmacy #[id number], 1 tablet By Mouth Daily,Instr:Please keepupcoming scheduled annual appointment, 166, cm, ... Start Date: 01/02/20 Status: Ordered SUMAtriptan 25 mg oral tablet 1 tablet = 25 mg, By Mouth, Once, PRN for migraine headache, # 3 tablet, 4 Refills, Soft Stop, 04/17/20 9:13:00 EDT, Tablet, [facility]/pharmacy #[id number], 166, cm, 01/02/20 13:06:00 EST, Height, 91, kg, 12/13/19 15:40:00 EST, Dry Weight Start Date: 04/17/20 Status: Ordered Vitamin B12 = 1,000 mcg, 2 times a day, 0 Refills, Maintenance, 08/04/19 10:32:43 EDT Start Date: 08/04/19 Status: Ordered vitamin b2 gummies vitamin b2 gummies, Refills 0, Maintenance, 03/01/19 8:41:05 EDT, Compound Start Date: 03/01/19 Status: Ordered Problem List Condition Effective Dates [...] (less than 100 in lifetime) entered on: 10/18/18 Sex
--- OUTSIDE RECORDS SUMMARY | 2023-07-30 21:19 | XMS_ITS | Continuity of Care Document ---
Author Name Unknown Organization [facility] Address Unknown Care Team Providers Care Machined Parts Quality Inspector Name Role Phone Noé DELA CRUZ, Windy Primary Care Physician [place] [facility] [place] 02/11[place]22 - 03/13/22 [facility] Allergies, Adverse Reactions, Alerts Substance [...] Gilles Cullen NP fluzone quadrivalent no preservatives [id number] 2Result Comment: [10/04/2016] Maria Luisa Marin NP [...] 14Admin Note: VIS 06/10/2006 GIVEN 15Admin Note: [facility] Medications Abilify Tablet 15 mg, By [...] Start Date: 01/17/22 Status: Ordered nystatin topical 870285 u/gm cream 1 application, Topically, 2 times [...] 4PM., # 56 tablet, 3 Refills, [facility], 165, cm, 01/14/22 9:19:00 EST, Height, [...]
--- OUTSIDE RECORDS SUMMARY | 2023-07-30 21:19 | XMS_ITS | Continuity of Care Document ---
Author Name Unknown Organization [facility] Address [address] [place] [phone]- Care Team Providers Care Client Relationship Consultant Name Role Phone Noé DELA CRUZ, Windy Primary Care Physician Encounter [facility] Date(s): 02/26/22 - 06/12/[address] [facility] [address] [id number]- Attending Physician: Jairo Flynn MD Admitting Physician: Jairo Flynn MD Referring Physician: Windy Umanzor NP Allergies, Adverse Reactions, Alerts Substance Reaction Severity Status amoxicillin-clavulanate 1 Ac tive Augmentin Active Adderall Psychomotor restless ness 07-APR-2015 22:24:19<$> Active ZyPREXA extreme weight gain Active SEROquel 2 Active Depakote Active LamISIL hives Active 1rash 2elevates liver enzymes Immunizations Given [...] Gilles Cullen NP fluzone quadrivalent no preservatives [id number] 2Result Comment: [10/04/2016] Maria Luisa Marin NP [...] a schedule II opioid drug., 165, cm, 060... Start Date: 09/17/21 Status: Ordered Atrovent HFA [...] Start Date: 01/17/22 Status: Ordered nystatin topical 818945 u/gm cream 1 application, Topically, 2 times [...] AT 4PM., # 56 tablet, 3 Refills, 06/11/22 16:32:00 EDT, [facility], 165, cm, 05/13/22 14:09:00 EDT, Height, 85.1, kg, 05/09/22 10:09:00 EDT, Dry Weight Start Date: 06/11/22 Status: Ordered Vitamin D3 2000 intl units [...] capsule, 0 Refills, Maintenance, 09/30/21 14:49:00 EDT, Phoebe, [facility], Partial fill upon patient [...]
--- OUTSIDE RECORDS SUMMARY | 2023-07-30 21:19 | XMS_ITS | Continuity of Care Document ---
Author Name Unknown Organization [facility] Address [address] [place] [address]- Care Team Providers Care Repair Welder Name Role Phone Nicolas DOWNS, Mayda Salguero Primary Care Physician Encounter [facility] Date(s): 12/03/20 - 01/02/[address] [address] Allergies, Adverse Reactions, Alerts Substance Reaction [...] Gilles Cullen NP fluzone quadrivalent no preservatives [id number] 4Result Comment: [10/04/2016] Maria Luisa Marin NP [...] 14Admin Note: VIS 06/10/2006 GIVEN 15Admin Note: [facility] Medications Abilify Tablet 15 mg, By [...] 1 Refills, Maintenance, 10/07/18 15:51:43 EST, Nasal [place] Start Date: 10/07/18 Stop Date: 04/05/19 Status: [...] Refills, Maintenance, 11/17/20 13:07:00 EST, EC Tablet, [facility]/pharmacy #[id number], 165, cm, 10/23/20 14:38:00 EST, Height, 95.5, kg, 09/24/20 15:41:00 EDT, Dry Weight Start Date: 11/17/20 Status: Ordered Seasonique oral tablet 1 tablet, By Mouth, Daily, Please keep upcoming scheduled annual appointment, # 91 tablet, 4 Refills, Maintenance, 01/02/20 14:53:00 EST, [facility]/pharmacy #[id number], 1 tablet By Mouth Daily,Instr:Please keepupcoming scheduled annual appointment, 166, cm, /... Start Date: 01/02/20 Status: Ordered SUMAtriptan 50 mg oral tablet 1 tablet = 50 mg, By Mouth, Daily, PRN for migraine headache, # 9 tablet, 6 Refills, Soft Stop, 11/08/20 8:21:00 EST, Tablet, [facility]/pharmacy #[id number], increasing the dose, 165, cm, 10/23/20 [...] Refills, Soft Stop, 08/28/20 8:08:00 EDT, Tablet, [facility]/pharmacy #[id number], 165, cm, 08/14/20 10:25:00 EDT, Height, [...]
--- OUTSIDE RECORDS SUMMARY | 2023-07-30 21:19 | XMS_ITS | Continuity of Care Document ---
Author Name Unknown Organization [facility] Address [address] [place] [phone]- Care Team Providers Care Certified Prosthetist/Orthotist Name Role Phone Nicolas DOWNS, Mayda Salguero Primary Care Physician Encounter [facility] Date(s): 10/08/20 - 11/07/20 [facility] [address] [place] [id number]- Allergies, Adverse Reactions, Alerts Substance Reaction Severity [...] Gilles Cullen NP fluzone quadrivalent no preservatives [id number] 4Result Comment: [10/04/2016] Maria Luisa Marin NP [...] 14Admin Note: VIS 06/10/2006 GIVEN 15Admin Note: [facility] Medications Abilify Tablet 15 mg, By [...] 1 Refills, Maintenance, 10/07/18 15:51:43 EST, Nasal [place] Start Date: 10/07/18 Stop Date: 04/05/19 Status: Ordered lithium 300 mg oral tablet 1 tablet = 300 mg, By Mouth, 2 times a day, 0 Refills, Maintenance, 07/16/20 18:21:00 EDT Start Date: 07/16/20 Status: Ordered magnesium oxide 400 mg oral tablet 1 tablet = 400 mg, By Mouth, Daily, for 30 days, # 30 tablet, 6 Refills, Acute 11/13/20 9:06:00 EST, 04/17/20 9:06:00 EDT, Tablet, [facility]/pharmacy #[id number], 166, cm, 01/02/20 13:06:00 EST, Height, 91, kg, 12/13/19 15:40:00 EST, Dry Weight Start Date: 04/17/20 Stop Date: 11/13/20 Status: Ordered Melatonin = 7.5 mg, Daily [...] Refills, Maintenance, 10/08/20 8:28:00 EST, EC Tablet, [facility]/pharmacy #[id number], 165, cm, 09/24/20 15:41:00 EDT, Height, 95.5, kg, 09/24/20 15:41:00 EDT, Dry Weight Start Date: 10/08/20 Status: Ordered Seasonique oral tablet 1 tablet, By Mouth, Daily, Please keep upcoming scheduled annual appointment, # 91 tablet, 4 Refills, Maintenance, 01/02/20 14:53:00 EST, [facility]/pharmacy #[id number], 1 tablet By Mouth Daily,Instr:Please keepupcoming scheduled annual appointment, 166, cm, /... Start Date: 01/02/20 Status: Ordered Vitamin B12 = 1,000 mcg, [...] Refills, Soft Stop, 08/28/20 8:08:00 EDT, Tablet, [facility]/pharmacy #[id number], 165, cm, 08/14/20 10:25:00 EDT, [...]
--- OUTSIDE RECORDS SUMMARY | 2023-07-30 21:19 | XMS_ITS | Continuity of Care Document ---
Author Name Unknown Organization [facility] Address [address] [place] [address]- Care Team Providers Care Wellness Trainer Name Role Phone Nicolas DOWNS, Mayda Salguero Primary Care Physician Encounter [facility] Date(s): 03/20/20 - 04/19/20 [facility] [address] [place] [phone] [facility] Attending Physician: Con Rodriguez Admitting Physician: Con Rodriguez Referring Physician: Con Rodriguez Allergies, Adverse Reactions, Alerts Substance Reaction Severity [...] Gilles Cullen NP fluzone quadrivalent no preservatives [id number] 4Result Comment: [10/04/2016] Maria Luisa Marin NP [...] Note: VIS 06/10/2006 GIVEN 15Admin Note: [facility] Medications Abilify Tablet 15 mg, By [...] 1 Refills, Maintenance, 10/07/18 15:51:43 EST, Nasal [place] Start Date: 10/07/18 Stop Date: 04/05/19 Status: Ordered magnesium oxide 400 mg oral tablet 1 tablet = 400 mg, By Mouth, Daily, for 30 days, # 30 tablet, 6 Refills, Acute 11/13/20 9:06:00 EST, 04/17/20 9:06:00 EDT, Tablet, [facility]/pharmacy #[id number], 166, cm, 01/02/20 13:06:00 EST, Height, [...] capsule, 3 Refills, Maintenance, 01/18/20 11:59:00 EST, [facility]/pharmacy #[id number], 166, cm, 01/02/20 13:06:00 EST, Height, 91, kg, 12/13/19 15:40:00 EST, Dry Weight Start Date: 01/18/20 Status: Ordered Seasonique oral tablet 1 tablet, By Mouth, Daily, Please keep upcoming scheduled annual appointment, # 91 tablet, 4 Refills, Maintenance, 01/02/20 14:53:00 EST, [facility]/pharmacy #[id number], 1 tablet By Mouth Daily,Instr:Please keepupcoming scheduled annual appointment, 166, cm, 02/... Start Date: 01/02/20 Status: Ordered SUMAtriptan 25 mg oral tablet 1 tablet = 25 mg, By Mouth, Once, PRN for migraine headache, # 3 tablet, 4 Refills, Soft Stop, 04/17/20 9:13:00 EDT, Tablet, [facility]/pharmacy #[id number], 166, cm, 01/02/20 13:06:00 EST, Height, [...]
--- OUTSIDE RECORDS SUMMARY | 2023-07-30 21:19 | XMS_ITS | Continuity of Care Document ---
Author Name Unknown Organization [facility] Address Unknown Care Team Providers Care Building Inspector Name Role Phone Noé DELA CRUZ, Windy Primary Care Physician Encounter [facility] Date(s): 06/12/22 - 06/19/22 [facility] Attending Physician: Not on Staff, Attending MD Allergies, Adverse Reactions, Alerts Substance Reaction Severity Status amoxicillin-clavulanate 1 Ac tive Augmentin Active Adderall Psychomotor restless ness 07-APR-2015 22:24:19<$> Active SEROquel 2 Active ZyPREXA extreme weight gain Active Depakote [...] Gilles Cullen NP fluzone quadrivalent no preservatives [id number] 2Result Comment: [10/04/2016] Maria Luisa Marin NP [...] 14Admin Note: VIS 06/10/2006 GIVEN 15Admin Note: [facility] Medications Abilify Tablet 15 mg, By [...] 28 tablet, 5 Refills, Maintenance, 02/06/22 12:18:[facility], 0, 1 tablet By Mouth [...] Start Date: 01/17/22 Status: Ordered nystatin topical 296189 u/gm cream 1 application, Topically, 2 times [...] mL, 0 Refills, Maintenance, 09/25/21 9:13:[facility], Partial fill upon patient request [...] Mouth, Daily, AT 4PM., # 56 tablet, 5 Refills, [facility], 165, cm, 05/13/22 14:09:00 EDT, Height, 85.1, kg, 05/09/22 10:09:00 EDT, Dry Weight Start Date: 06/13/22 Status: Ordered Vitamin D3 2000 intl units [...]
--- OUTSIDE RECORDS SUMMARY | 2023-07-30 21:19 | XMS_ITS | Continuity of Care Document ---
Author Name Unknown Organization [facility] Address Unknown Care Team Providers Care Card Services Specialist Name Role Phone Nicolas DOWNS, Mayda Salguero Primary Care Physician [place] [facility] [place](s): 09/24/21 - 10/24/21 [facility] Allergies, Adverse Reactions, Alerts Substance [...] Gilles Cullen NP fluzone quadrivalent no preservatives [id number] 2Result Comment: [10/04/2016] Maria Luisa Marin NP [...] 14Admin Note: VIS 06/10/2006 GIVEN 15Admin Note: [facility] Medications Abilify Tablet 15 mg, [...] cm, 06/0... Start Date: 09/17/21 Status: Ordered ascorbic acid 500 mg oral tablet 0 Refills, 10/16/21 16:24:00 EST, Partial fill upon patient request if the prescription is for a schedule II opioid drug. Start Date: 10/16/21 Status: Ordered cholecalciferol 2000 intl units oral [...] II opioid drug., 165, cm, 04/30/21 9:11:00 EDT,... Start Date: 09/30/21 Status: Ordered Coricidin HBP Chest Congestion & Cough 10 mg-200 mg oral capsule 1 capsule, By Mouth, Every 4 hours, PRN for cough, # 20 capsule, 0 Refills, Acute 11/05/21 16:48:00EST, 10/16/21 16:48:00 EST, Capsule, [facility], Partial fill upon patient request if the prescription is for a schedule II opioid drug., 1... Start Date: 10/16/21 Stop Date: 11/05/21 Status: Ordered cyanocobalamin 1000 mcg sublingual tablet [...] days, # 30 tablet, 8 Refills, Acute 06/23/22 9:09:00 EDT, 09/26/21 9:09:00 EDT, Tablet, [facility], Partial fill upon patient request if theprescription is for a schedule II opioid drug., 165, cm... Start Date: 09/26/21 Stop Date: 06/23/22 Status: Ordered Melatonin = 7.5 mg, Daily at bedtime, 0 Refills, Maintenance, 10/23/20 14:49:00 EST, Partial fill upon patient request Start Date: 10/23/20 Status: Ordered MiraLax oral powder for reconstitution = 17 Gm, By Mouth, Daily, PRN Constipation, dissolve in water before taking, # 527 Gm, 1 Refills, Acute 12/04/21 13:47:00 EST, 10/22/21 13:46:00 EST, REC Powder, [facility], Partial fill upon patient request if the prescription is for a sc... Start Date: 10/22/21 Stop Date: 12/04/21 Status: Ordered multivitamin Multiple Vitamins oral tablet 1 tablet, By Mouth, Daily, # 90 tablet, 0 Refills, Maintenance, 09/26/21 10:35:00 EDT, Tablet, [facility], Partial fill upon patient request if the prescription is for a schedule II opioid drug., 1 tablet By Mouth Daily, 165, cm, 04/30/21... Start Date: 09/26/21 Status: Ordered omeprazole 20 mg oral enteric coated capsule 1 capsule, By Mouth, Daily, # 90 capsule, 1 Refills, Maintenance, 09/17/21 10:43:00 EDT, [facility], 165, cm, 04/30/21 9:11:00 EDT, Height, 95, kg, 03/14/21 15:50:00 EDT, Dry Weight Start Date: 09/17/21 Status: Ordered psyllium 3.4 g/12 g oral powder for reconstitution = 1.7 Gm, By Mouth, 2 times a day, PRN as needed for constipation, # 1,254 Gm, 1 Refills, Acute 11/28/21 13:45:00 EST, 10/22/21 13:45:00 EST, REC Powder, [facility], Partial fill uponpatient request if the prescription is for a schedule I... Start Date: 10/22/21 Stop Date: 11/28/21 Status: Ordered riboflavin 400 mg oral capsule 1 capsule = 400 mg, By Mouth, Daily, # 30 capsule, 6 Refills, Maintenance, 10/03/21 16:19:00 EDT, [facility], Partial fill upon patient request if the prescription is for a schedule II opioid drug., 165, cm, 04/30/21 9:11:00 EDT, Height, 9... Start Date: 10/03/21 Stop Date: 05/01/22 Status: Ordered Seasonique oral tablet 1 tablet, [...] mg, By Mouth, Daily, # 60 tablet, 3 Refills, Maintenance, 10/16/21 16:25:00 EST, Tablet, [facility], Partial fill upon patient request if the prescription is for a schedule II opioid drug., 165, cm, 04/30/21 9:11:00 EDT, H... 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
--- OUTSIDE RECORDS SUMMARY | 2023-07-30 21:19 | XMS_ITS | Continuity of Care Document ---
Author Name Unknown Organization [facility] Address Unknown Care Team Providers Care Machine Bander And Cellophaner Helper Name Role Phone Noé DELA CRUZ, Windy Primary Care Physician Encounter [facility] Date(s): 02/06/22 - 03/08/22 [facility] Attending Physician: Con Rodriguez Admitting Physician: AdmtrCon Referring Physician: AdmtrCon Allergies, Adverse Reactions, Alerts [...] Gilles Cullen NP fluzone quadrivalent no preservatives [phone] 2Result Comment: [10/04/2016] Maria Luisa Marin NP [...] 14Admin Note: VIS 06/10/2006 GIVEN 15Admin Note: [facility] Medications Abilify Tablet 15 mg, By Mouth, Daily, per Psych, Maintenance, 12/03/15 8:57:35 EST Start Date: 12/03/15 Status: Ordered Aleve 220 mg oral capsule 2 capsule = 440 mg, By Mouth, Once, PRN Pain , Moderate, # 40 capsule, 1 Refills, Soft Stop, 09/17/21 10:43:00 EDT, Phoebe, [facility], Partial fill [...] Start Date: 01/17/22 Status: Ordered nystatin topical 925510 u/gm cream 1 application, Topically, 2 times [...] # 28 tablet, 5 Refills, [facility], 165, cm, 01/14/22 9:19:00 EST, Height, 95, [...]
--- OUTSIDE RECORDS SUMMARY | 2023-07-30 21:19 | XMS_ITS | Continuity of Care Document ---
Author Name Unknown Organization [facility] Address Unknown Care Team Providers Care Electrotype Molder Name Role Phone Nicolas DOWNS, Mayda Salguero Primary Care Physician Encounter [facility] Date(s): 10/03/21 - 11/02/21 [facility] Allergies, Adverse Reactions, Alerts Substance [...] Gilles Cullen NP fluzone quadrivalent no preservatives [phone] 2Result Comment: [10/04/2016] Maria Luisa Marin NP [...] 14Admin Note: VIS 06/10/2006 GIVEN 15Admin Note: [facility] Medications Abilify Tablet 15 mg, By [...]
--- OUTSIDE RECORDS SUMMARY | 2023-07-30 21:19 | XMS_ITS | Continuity of Care Document ---
Author Name Unknown Organization [facility] [place] [facility] [place] Address [address], [address] [place] [address]- Care Team Providers Care Welding Technician Name Role Phone Nicolas DOWNS, Mayda Salguero Primary Care Physician [facility] Date[facility]s): 07/26/19 - 11/23/19 [facility] [address], [address]th [place] [address]- Attending Physician: Vinh DOWNS, Kandi Mooney Allergies, Adverse Reactions, Alerts Substance Reaction Severity [...] Gilles Cullen NP fluzone quadrivalent no preservatives [id number] 4Result Comment: [10/04/2016] Maria Luisa Marin NP [...] 14Admin Note: VIS 06/10/2006 GIVEN 15Admin Note: [facility] Medications Abilify Tablet 15 mg, By Mouth, 2 times a day, per Psych, Maintenance, 12/03/15 8:57:35 EST Start Date: 12/03/15 Status: Ordered Aleve = 200 mg, By Mouth, Daily, 0 Refills, Maintenance, 10/06/19 11:21:51 EST Start Date: 10/06/19 Status: Ordered clonazePAM 0.5 mg oral tablet 1 tablet = 0.5 mg, By Mouth, Daily before lunch, 0 Refills, Maintenance, 10/06/19 11:18:59 EST Start Date: 10/06/19 Status: Ordered clonazePAM 1 mg oral tablet 1 tablet = 1 mg, By Mouth, 2 times a day, 0 Refills, Maintenance, 02/14/19 15:49:34 EDT, Tablet Start Date: 02/14/19 Status: Ordered Flonase 50 mcg/inh nasal spray 1 sprays = 50 mcg, Nares, Both, Daily in AM, # 15.8 mL, 1 Refills, Maintenance, 10/07/18 15:51:43 EST, Nasal [place] Start Date: 10/07/18 Stop Date: 04/05/19 Status: Ordered Lamictal Lamictal, See Instructions, Refills 0, Maintenance, 75mg Qam - 50mg Qpm, 10/12/17 12:05:42 EST, Compound Start Date: 10/12/17 Status: Ordered magnesium oxide 400 mg oral tablet 1 tablet = 400 mg, By Mouth, Daily, for 30 days, # 30 tablet, 6 Refills, Acute 05/03/20 9:12:23 EDT, 10/06/19 9:12:23 EST, Tablet Start Date: 10/06/19 Stop Date: 05/03/20 Status: Ordered Multivitamin By Mouth, Daily, 0 Refills, Maintenance Start Date: 06/03/13 Status: Ordered omeprazole 20 mg oral enteric coated capsule 1 capsule = 20 mg, By Mouth, 2 times a day, # 60 capsule, 3 Refills, Maintenance, 09/05/19 15:43:13EDT Start Date: 09/05/19 Stop Date: 01/03/20 Status: Ordered promethazine 12.5 mg oral tablet 1 tablet = 12.5 mg, By Mouth, Every 6 hours, PRN for motion sickness, # 120 tablet, 1 Refills, Maintenance, 10/24/19 14:38:42 EST, Tablet Start Date: 10/24/19 Stop Date: 12/23/19 Status: Ordered Seasonique oral tablet 1 tablet, By Mouth, Daily, # 91 tablet, 4 Refills, Maintenance, 10/18/18 12:47:41 EST, 1 tablet By Mouth Daily Start Date: 10/18/18 Status: Ordered selenium sulfide 2.5% topical lotion See Instructions, apply for 10 minutes daily x 7 days, then weekly x 1 month, then monthly x 4 months, # 1 bottle, 1 Refills, Maintenance, 02/14/19 15:46:49 EDT, apply for 10 minutes daily x 7 days, then weekly x 1 month, then monthly x 4 months Start Date: 02/14/19 Status: Ordered tylenol tylenol, Refills 0, Maintenance, 03/01/19 8:40:49 EDT, Compound Start Date: 03/01/19 Status: Ordered Vitamin B12 = 1,000 mcg, [...]
--- OUTSIDE RECORDS SUMMARY | 2023-07-30 21:19 | XMS_ITS | Continuity of Care Document ---
Author Name Unknown Organization [facility] Address [address], [address], [address] [place] [id number]- Care Team Providers Care Edge Inker Name Role Phone Nicolas DOWNS, Mayda P Primary Care Physician [facility] Date[facility]s): 12/29/19 - 01/05/20 [facility] [address], [address], [address] [place] [id number] [facility] Attending Physician: Not on Staff, Attending MD Allergies, Adverse Reactions, Alerts Substance Reaction Severity Status Adderall Psychomotor restlessness -MAR-2015 22:2 4:19<$> Active LamISIL hives Active ZyPREXA [...] [02/01/2018] Sujata Sims MD 3Result Comment: [08/26/2018] Gliles Cullen NP fluzone quadrivalent no preservatives [id number] 4Result Comment: [10/04/2016] Maria Luisa Marin NP 5Result Comment: [08/13/2015] Ordered by LOBITO Epps 6Result Comment: [11/04/2014] Gilles Subhash DNP 7Admin Note: private vis given screening questions negative 8Admin Note: VIS 07/10/2009 GIVEN 9Admin Note: VIS 12/27/2007 GIVEN 10Admin Note: VIS 01/01/07 GIVEN 11Admin Note: vis given 01/01/07 private 12Admin Note: vis given 09/23/2011 private state 13Admin Note: vis given. 09/23/2011 14Admin Note: VIS 06/10/2006 GIVEN 15Admin Note: [facility] Medications Abilify Tablet 15 mg, By Mouth, 2 times a day, per Psych, Maintenance, 12/03/15 8:57:35 EST Start Date: 12/03/15 Status: Ordered clonazePAM 0.5 mg oral tablet [...] 1 Refills, Maintenance, 10/07/18 15:51:43 EST, Nasal [place] Start Date: 10/07/18 Stop Date: 04/05/19 Status: [...] Date: 10/06/19 Stop Date: 05/03/20 Status: Ordered Metamucil Powder 1 pack/packet, By [...] Date: 09/05/19 Stop Date: 01/03/20 Status: Ordered Seasonique oral tablet 1 tablet, By Mouth, Daily, Please keep upcoming scheduled annual appointment, # 91 tablet, 4 Refills, Maintenance, 01/02/20 14:53:00 EST, [id number], 1 tablet By Mouth Daily,Instr:Please keepupcoming scheduled annual appointment, 166, cm, ... Start Date: 01/02/20 Status: Ordered Vitamin B12 [...]
--- OUTSIDE RECORDS SUMMARY | 2023-07-30 21:19 | XMS_ITS | Continuity of Care Document ---
Author Name Unknown Organization [facility] Address Unknown Care Team Providers Care Universal Worker Assisted Living Name Role Phone Mayda Valenzuela MD Primary Care Physician Encounter [facility] Date(s): 10/08/21 - 10/15/21 [facility] Attending Physician: Sofia Felix MD Referring Physician: Mayda Valenzuela MD Allergies, Adverse Reactions, Alerts Substance Reaction Severity Status amoxicillin-clavulanate 1 Ac tive Augmentin Active Adderall Psychomotor restless ness 07-APR-2015 22:24:19<$> Active LamISIL hives Active ZyPREXA extreme weight gain Active Depakote Active 1rash Immunizations Given and Recorded Vaccine [...] Gilles Cullen NP fluzone quadrivalent no preservatives [phone] 2Result Comment: [10/04/2016] Maria Luisa Marin NP [...] 14Admin Note: VIS 06/10/2006 GIVEN 15Admin Note: [facility] Medications Abilify Tablet 15 mg, By [...] is for a schedule II opioid drug., 165lauren, ... Start Date: 09/17/21 Status: Ordered cholecalciferol [...] 9:11:00 EDT,... Start Date: 09/30/21 Status: Ordered CoQ10 = 2,000 mg, By [...] EST, Powder Start Date: 12/13/19 Status: Ordered multivitamin Multiple Vitamins oral tablet 1 tablet, By Mouth, Daily, # 90 tablet, 0 Refills, Maintenance, 09/26/21 10:35:00 EDT, [facility], Partial fill upon [...] Refills, Soft Stop, 11/08/20 8:21:00 EST, Tablet, [facility]/pharmacy #[id number], increasing the dose, 165, cm, 10/23/20 14:38:00 [...] EDT, H... Start Date: 09/30/21 Status: Ordered zinc sulfate 220 mg oral capsule 220 mg, 1, capsule, By Mouth, Daily, # 100 capsule, Refills 0, Tot. Refills 0, Maintenance, 10/01/21 14:53:00 EDT, Route to Pharmacy Electronically, [facility], Partial fill upon patient request if the prescription is for a schedule II opi... Start Date: 10/01/21 Status: Ordered Problem List Condition Effective Dates [...]
--- OUTSIDE RECORDS SUMMARY | 2023-07-30 21:19 | XMS_ITS | Continuity of Care Document ---
Author Name Unknown Organization [facility] Address Unknown Care Team Providers Care Termite Control Representative Name Role Phone Noé DELA CRUZ, Windy Primary Care Physician [place] [facility] Date(s): 05/02/22 - 06/01/22 [facility] Allergies, Adverse Reactions, Alerts Substance [...] Gilles Cullen NP fluzone quadrivalent no preservatives [phone] 2Result Comment: [10/04/2016] Maria Luisa Marin NP [...] 14Admin Note: VIS 06/10/2006 GIVEN 15Admin Note: [facility] Medications Abilify Tablet 15 mg, [...] 28 tablet, 5 Refills, Maintenance, 02/06/22 12:18:00 [facility], 0, 1 tablet By Mouth [...] Start Date: 01/17/22 Status: Ordered nystatin topical [id number] u/gm cream 1 application, Topically, 2 times [...]
--- OUTSIDE RECORDS SUMMARY | 2023-07-30 21:19 | XMS_ITS | Continuity of Care Document ---
Author Name Unknown Organization [facility] Address [address], [address], [address] [place] [address]- Care Team Providers Care Salesperson Sheet Music Name Role Phone Nicolas DOWNS, Mayda Salguero Primary Care Physician [facility] Date[facility]s): 11/07/20 - 12/08/20 [facility] [address], [address], [address] [place] [address] Attending Physician: Not on Staff, Attending MD [...] Gilles Cullen NP fluzone quadrivalent no preservatives [phone] 4Result Comment: [10/04/2016] Maria Luisa Tomas PAINTINGS CONSERVATOR 5Result Comment: [08/13/2015] Ordered by LOBITO Epps 6Result Comment: [11/04/2014] Gilles Cullen DNP 7Admin Note: private vis given screening questions negative 8Admin Note: VIS 07/10/2009 GIVEN 9Admin Note: VIS 12/27/2007 GIVEN 10Admin Note: VIS 01/01/07 GIVEN 11Admin Note: vis given 01/01/07 private 12Admin Note: vis given 09/23/2011 private state 13Admin Note: vis given. 09/23/2011 14Admin Note: VIS 06/10/2006 GIVEN 15Admin Note: [facility] Medications Abilify Tablet 15 mg, [...] 1 Refills, Maintenance, 10/07/18 15:51:43 EST, Nasal [place] Start Date: 10/07/18 Stop Date: 04/05/19 Status: [...] Refills, Maintenance, 11/17/20 13:07:00 EST, EC Tablet, [facility]/pharmacy #[id number], 165, cm, 10/23/20 14:38:00 EST, Height, [...] Refills, Soft Stop, 11/08/20 8:21:00 EST, Tablet, [facility]/pharmacy #[id number], increasing the dose, 165, cm, [...] Refills, Soft Stop, 08/28/20 8:08:00 EDT, Tablet, [facility]/pharmacy #[id number], 165, cm, 08/14/20 10:25:00 EDT, [...]
--- OUTSIDE RECORDS SUMMARY | 2023-07-30 21:19 | XMS_ITS | Continuity of Care Document ---
Author Name Unknown Organization [facility] Address [address], [address] [place] [address]- Care Team Providers Care Lighting Equipment Operator Name Role Phone Nicolas DOWNS, Mayda P Primary Care Physician [facility] Date(s): 03/14/21 - 03/21/21 [facility] [address], [address]th [address] [place], [place] [address] Attending Physician: Alessia DOWNS, Della Rubin Referring Physician: Kandi Justice MD Allergies, Adverse Reactions, Alerts Substance Reaction [...] Gilles Cullen NP fluzone quadrivalent no preservatives [phone] 4Result Comment: [10/04/2016] Maria Luisa Marin NP [...] 14Admin Note: VIS 06/10/2006 GIVEN 15Admin Note: [facility] Medications Abilify Tablet 15 mg, By [...] 3 Refills, Maintenance, 02/12/21 13:51:00 EDT, NasalSpray, [facility]/pharmacy #[id number], 2 sprays Nares, Both Daily in AM,x90 [...] Refills, Maintenance, 02/24/21 17:36:00 EDT, EC Tablet, [facility]/pharmacy #[id number], 165, cm, 10/23/20 14:38:00 EST, Height, 95.5, kg, 09/24/20 15:41:00 EDT, Dry Weight Start Date: 02/24/21 Status: Ordered Seasonique oral tablet 1 tablet, By Mouth, Daily, Please keep upcoming scheduled annual appointment, # 91 tablet, 3 Refills, Maintenance, 03/14/21 15:58:00 EDT, [id number], 1 tablet By Mouth Daily,Instr:Please keepupcoming scheduled annual appointment, 165, cm, ... Start Date: 03/14/21 Status: Ordered SUMAtriptan 50 mg oral tablet 1 tablet = 50 mg, By Mouth, Daily, PRN for migraine headache, # 9 tablet, 6 Refills, Soft Stop, 11/08/20 8:21:00 EST, Tablet, [facility]/pharmacy #1426, increasing the dose, 165, cm, 10/23/20 14:38:00 [...] Refills, Soft Stop, 08/28/20 8:08:00 EDT, Tablet, [facility]/pharmacy #[id number], 165, cm, 08/14/20 10:25:00 EDT, Height, [...] abdominal pain(Confirmed) Active Sensory-neural hearing loss(Confirmed)(Stable) Active Vital Signs Most recent to oldest [Reference Range]: 1 Height 165 cm (03/14/21 3:43 PM) Weight 95 kg (03/14/21 3:43 PM) Body Mass Index [18.5-24.99] 34.89 *>HHI* (03/14/21 3:43 PM) Dry Weight 95 kg (03/14/21 3:43 PM) Weight Obtained Via Standing scale (03/14/21 3:43 PM) Dry Weight Obtained Via Standing scale (03/14/21 3:43 PM) Social History Social History Type Response Smoking Status Never (less than 100 in lifetime) entered on: 03/14/21 Sex
--- OUTSIDE RECORDS SUMMARY | 2023-07-30 21:19 | XMS_ITS | Continuity of Care Document ---
Author Name Unknown Organization [facility] Address Unknown Care Team Providers Care Awning Hanger Supervisor Name Role Phone Noé DELA CRUZ, Windy Primary Care Physician [facility] Date[facility]s): 04/07/22 - 05/07/22 [facility] Allergies, Adverse Reactions, Alerts Substance [...] Gilles Cullen NP fluzone quadrivalent no preservatives [phone] 2Result Comment: [10/04/2016] Maria Luisa Marin NP [...] 14Admin Note: VIS 06/10/2006 GIVEN 15Admin Note: [facility] Medications Abilify Tablet 15 mg, By [...] Start Date: 01/17/22 Status: Ordered nystatin topical [id number] u/gm cream 1 application, Topically, 2 times [...]
--- OUTSIDE RECORDS SUMMARY | 2023-07-30 21:19 | XMS_ITS | Continuity of Care Document ---
Author Name Unknown Organization [facility] Address [address], [address] [place] [address]- Care Team Providers Care Financial Sales Advisor Name Role Phone Nicolas DOWNS, Mayda Salguero Primary Care Physician [facility] Date(s): 02/19/21 - 03/21/21 [facility] [address], [address] [place], [place] [address] Allergies, Adverse Reactions, Alerts Substance Reaction [...] Gilles Cullen NP fluzone quadrivalent no preservatives [phone] 4Result Comment: [10/04/2016] Maria Luisa Marin GREEN PIPEFITTER 5Result Comment: [08/13/2015] Ordered by LOBITO Epps 6Result Comment: [11/04/2014] Gilles Cullen DNP 7Admin Note: private vis given screening questions negative 8Admin Note: VIS 07/10/2009 GIVEN 9Admin Note: VIS 12/27/2007 GIVEN 10Admin Note: VIS 01/01/07 GIVEN 11Admin Note: vis given 01/01/07 private 12Admin Note: vis given 09/23/2011 private state 13Admin Note: vis given. 09/23/2011 14Admin Note: VIS 06/10/2006 GIVEN 15Admin Note: [facility] Medications Abilify Tablet 15 mg, [...] 3 Refills, Maintenance, 02/12/21 13:51:00 EDT, NasalSpray, [facility]/pharmacy #[id number], 2 sprays Nares, Both Daily in AM,x90 [...] Refills, Maintenance, 02/24/21 17:36:00 EDT, EC Tablet, [facility]/pharmacy #2476, 165, cm, 10/23/20 14:38:00 EST, Height, 95.5, kg, 09/24/20 15:41:00 EDT, Dry Weight Start Date: 02/24/21 Status: Ordered Seasonique oral tablet 1 tablet, By Mouth, Daily, Please keep upcoming scheduled annual appointment, # 91 tablet, 3 Refills, Maintenance, 03/14/21 15:58:00 EDT, [facility]/pharmacy #[id number], 1 tablet By Mouth Daily,Instr:Please keepupcoming scheduled annual appointment, 165, cm, /... Start Date: 03/14/21 Status: Ordered SUMAtriptan 50 mg oral tablet 1 tablet = 50 mg, By Mouth, Daily, PRN for migraine headache, # 9 tablet, 6 Refills, Soft Stop, 11/08/20 8:21:00 EST, Tablet, [facility]/pharmacy #1290, increasing the dose, 165, cm, 10/23/20 14:38:00 [...] Refills, Soft Stop, 08/28/20 8:08:00 EDT, Tablet, [facility]/pharmacy #1701, 165, cm, 08/14/20 10:25:00 EDT, Height, 95, [...]
--- OUTSIDE RECORDS SUMMARY | 2023-07-30 21:19 | XMS_ITS | Continuity of Care Document ---
Author Name Unknown Organization [facility] Address [address] [place] [address]- Care Team Providers Care Water Treatment Technician Name Role Phone Nicolas DOWNS, Mayda Salgueor Primary Care Physician Encounter [facility] Date(s): 07/15/21 - 08/14/21 [facility] [address] [place] [address]- Allergies, Adverse Reactions, Alerts Substance Reaction Severity [...] Gilles Cullen NP fluzone quadrivalent no preservatives [phone] 2Result Comment: [10/04/2016] Maria Luisa Marin NP [...] 14Admin Note: VIS 06/10/2006 GIVEN 15Admin Note: [facility] Medications Abilify Tablet 15 mg, By [...] patient request Start Date: 10/23/20 Status: Ordered estradiol-levonorgestrel Topically, 0 Refills, Maintenance, 04/30/21 9:17:00 EDT, Partial fill upon patient request if the prescription is for a schedule II opioid drug. Start Date: 04/30/21 Status: Ordered Flonase 50 mcg/inh nasal spray 2 sprays, Nares, Both, Daily in AM, # 15.8 mL, 3 Refills, Maintenance, 02/12/21 13:51:00 EDT, NasalSpray, [facility]/pharmacy #[id number], 2 sprays Nares, Both Daily in AM,x90 [...] 02/11/22 15:37:00 EDT, 07/16/21 15:37:00 EDT, Tablet, [facility]/pharmacy #2476, Partial fill upon patient request if [...] Refills, Maintenance Start Date: 06/03/13 Status: Ordered Seasonique oral tablet 1 tablet, By Mouth, Daily, Please keep upcoming scheduled annual appointment, # 91 tablet, 3 Refills, Maintenance, 03/14/21 15:58:00 EDT, [facility]/pharmacy #[id number], 1 tablet By Mouth Daily,Instr:Please keepupcoming scheduled annual appointment, 165, cm, ... Start Date: 03/14/21 Status: Ordered SUMAtriptan 50 mg oral tablet 1 tablet = 50 mg, By Mouth, Daily, PRN for migraine headache, # 9 tablet, 6 Refills, Soft Stop, 11/08/20 8:21:00 EST, Tablet, [facility]/pharmacy #2476, increasing the dose, 165, cm, 10/23/20 14:38:00 EST, Height, 95.5, kg, 09/24/20 15:41:00 EDT, Dry Weight Start Date: 11/08/20 Stop Date: 06/06/21 Status: Ordered Tylenol 325 mg oral tablet 650 mg, 2, tablet, By Mouth, Every 4 hours, PRN, # 120 tablet, Refills 0, Maintenance, for fever, 04/30/21 9:16:00 EDT, Partial fill upon patient request if the prescription is for a schedule II opioid drug. Start Date: 04/30/21 Status: Ordered Vitamin B12 = 1,000 mcg, 2 times a day, 0 Refills, Maintenance, 08/04/19 10:32:43 EDT Start Date: 9/5/19 Status: Ordered vitamin b2 gummies vitamin b2 [...] Stop, 08/28/20 8:08:00 EDT, Tablet, [facility]/pharmacy #[id number], 165, cm, 08/14/20 10:25:00 [...]
--- OUTSIDE RECORDS SUMMARY | 2023-07-30 21:19 | XMS_ITS | Continuity of Care Document ---
Author Name Unknown Organization [facility] Address [address], [address] [place] [address]- Care Team Providers Care Journal Clerk Name Role Phone Nicolas DOWNS, Mayad Salguero Primary Care Physician [facility]): 02[facility]12[facility]21 - 03/14/21 [facility] [address], [address] [place], [place] [address] Allergies, Adverse Reactions, Alerts Substance Reaction [...] influenza virus vaccine, inactivated 3 08/26/18 Gi olttie influenza virus vaccine, inactivated 4 10/04/16 Gi [...] Gilles Cullen NP fluzone quadrivalent no preservatives [phone] 4Result Comment: [10/04/2016] Maria Luisa Marin BACTERIOLOGIST FOOD 5Result Comment: [08/13/2015] Ordered by LOBITO Epps 6Result Comment: [11/04/2014] Gilles Cullen DNP 7Admin Note: private vis given screening questions negative 8Admin Note: VIS 07/10/2009 GIVEN 9Admin Note: VIS 12/27/2007 GIVEN 10Admin Note: VIS 01/01/07 GIVEN 11Admin Note: vis given 01/01/07 private 12Admin Note: vis given 09/23/2011 private state 13Admin Note: vis given. 09/23/2011 14Admin Note: VIS 06/10/2006 GIVEN 15Admin Note: [facility] Medications Abilify Tablet 15 mg, By [...] 3 Refills, Maintenance, 02/12/21 13:51:00 EDT, NasalSpray, [facility]/pharmacy #0066, 2 sprays Nares, Both Daily in AM,x90 [...] Refills, Maintenance, 02/24/21 17:36:00 EDT, EC Tablet, [facility]/pharmacy #[id number], 165, cm, 10/23/20 14:38:00 EST, Height, 95.5, kg, 09/24/20 15:41:00 EDT, Dry Weight Start Date: 02/24/21 Status: Ordered Seasonique oral tablet 1 tablet, By Mouth, Daily, Please keep upcoming scheduled annual appointment, # 91 tablet, 3 Refills, Maintenance, 03/14/21 15:58:00 EDT, [facility]/pharmacy #[id number], 1 tablet By Mouth Daily,Instr:Please keepupcoming scheduled annual appointment, 165, cm, /... Start Date: 03/14/21 Status: Ordered SUMAtriptan 50 mg oral tablet 1 tablet = 50 mg, By Mouth, Daily, PRN for migraine headache, # 9 tablet, 6 Refills, Soft Stop, 11/08/20 8:21:00 EST, Tablet, [facility]/pharmacy #0934, increasing the dose, 165, cm, 10/23/20 14:38:00 [...] Refills, Soft Stop, 08/28/20 8:08:00 EDT, Tablet, [facility]/pharmacy #[id number], 165, cm, 08/14/20 10:25:00 EDT, [...]
--- OUTSIDE RECORDS SUMMARY | 2023-07-30 21:19 | XMS_ITS | Continuity of Care Document ---
Author Name Unknown Organization [facility] Address Unknown Care Team Providers Care Telephone Interviewer Name Role Phone Nicolas DOWNS, Mayda Salguero Primary Care Physician Encounter [facility] Date(s): 09/24/21 - 10/24/21 [facility] Allergies, Adverse Reactions, Alerts Substance Reaction Severity Status amoxicillin-clavulanate 1 Ac tive Augmentin Active Depakote Active ZyPREXA extreme weight gain Active Adderall Psychomotor restless ness 07-APR-2015 22:24:19<$> Active LamISIL hives Active 1rash Immunizations Given [...] Gilles Cullen NP fluzone quadrivalent no preservatives [phone] 2Result Comment: [10/04/2016] Maria Luisa Marin NP [...] 14Admin Note: VIS 06/10/2006 GIVEN 15Admin Note: [facility] Medications Abilify Tablet 15 mg, [...]
--- OUTSIDE RECORDS SUMMARY | 2023-07-30 21:19 | XMS_ITS | Continuity of Care Document ---
Author Name Unknown Organization [facility] Address [address], [address] [place] [address]- Care Team Providers Care Pediatric Neurologist Name Role Phone Nicolas DOWNS, Mayda Salguero Primary Care Physician [facility] Date[facility]21 - 10/16/21 [facility] [address], [address] [place] [address]- Allergies, Adverse Reactions, Alerts Substance Reaction Severity [...] Gilles Cullen NP fluzone quadrivalent no preservatives [phone] 2Result Comment: [10/04/2016] Maria Luisa Marin NP [...] Note: VIS 06/10/2006 GIVEN 15Admin Note: [facility] Medications Abilify Tablet 15 mg, By Mouth, [...] 0 Refills, Maintenance, 09/30/21 14:49:00 EDT, Capsule, [facility], Partial fill upon patient request if the prescription is for a schedule II opioid drug., 165, cm, 04/30/21 9:11:00 EDT,... Start Date: 09/30/21 Status: Ordered CoQ10 = 2,000 mg, By Mouth, Daily, 0 Refills, Maintenance, 10/23/20 14:47:00 EST, Partial fill upon patient request Start Date: 10/23/20 Status: Ordered Coricidin HBP Chest Congestion & Cough 10 mg-200 mg oral capsule 1 capsule, By Mouth, Every 4 hours, PRN for cough, # 20 capsule, 0 Refills, Acute 11/05/21 16:48:00EST, 10/16/21 16:48:00 EST, Capsule, [facility], Partial fill upon patient request if the prescription is for a schedule II opioid drug., 1... Start Date: 10/16/21 Stop Date: 11/05/21 Status: Ordered cyanocobalamin 1000 mcg sublingual tablet 1 tablet = 1,000 mcg, Sublingual, 2 times a day, # 60 tablet, 3 Refills, Maintenance, 09/17/21 10:43:00 EDT, Tablet, [facility], [...] Acute 06/23/22 9:09:00 EDT, 09/26/21 9:09:00 EDT, [facility], Partial fill upon [...] 3 Refills, Maintenance, 09/16/21 11:42:00 EDT, [facility], 1 tablet By Mouth Daily,Instr:Please keep [...] Soft Stop, 11/08/20 8:21:00 EST, Tablet, [id number], increasing the dose, 165, cm, 10/23/20 14:38:00 [...] II opi... Start Date: 10/01/21 Status: Ordered Zithromax Z-Kamran 250 mg oral tablet 1 pack/packet, By Mouth, Once, as directed on package labeling. 2 tablets first day, then one p.o daily, # 6 tablet, 0 Refills, Soft Stop, 10/16/21 16:48:00 EST, Tablet, [facility], Partial fill upon patient request if the prescription is... Start Date: 10/16/21 Status: Ordered Problem List Condition Effective Dates [...]
--- OUTSIDE RECORDS SUMMARY | 2023-07-30 21:20 | XMS_ITS | Continuity of Care Document ---
Author Name Unknown [facility] Address [address], [address] [place] [address]- Care Team Providers Care Pulmonary Nurse Practitioner Name Role Phone Nicolas DOWNS, Mayda Salguero Primary Care Physician Encounter [facility] Date(s): 10/01/21 - 10/31/21 [facility] [address], [address] [place], [place] [address] Allergies, Adverse Reactions, Alerts Substance Reaction [...] Give n influenza virus vaccine, inactivated 5 11/17/12 Gi lottie influenza virus vaccine, inactivated 6 [...] Gilles Cullen NP fluzone quadrivalent no preservatives [phone] 2Result Comment: [10/04/2016] Maria Luisa Marin NP [...]
--- OUTSIDE RECORDS SUMMARY | 2023-07-30 21:20 | XMS_ITS | Continuity of Care Document ---
Author Name Unknown Organization [facility] Address [address], [address] Floor, [address] [place] [address]- Care Team Providers Care Salt Cutter Name Role Phone Nicolas DOWNS, Mayda P Primary Care Physician [facility] Date[facility]s): 12/29/19 - 01/08/20 [facility] [address], [address] Floor, [address] [place] [address]- [facility] Attending Physician: Con Rodriguez Admitting Physician: AdmCon tang Referring Physician: AdmCon tang Allergies, Adverse Reactions, Alerts Substance Reaction Severity [...] Gilles Cullen NP fluzone quadrivalent no preservatives [phone] 4Result Comment: [10/04/2016] Maria Luisa Tomas GYNECOLOGICAL ASSISTANT 5Result Comment: [08/13/2015] Ordered by LOBITO Epps 6Result Comment: [11/04/2014] Gilles Cullen DNP 7Admin Note: private vis given screening questions negative 8Admin Note: VIS 07/10/2009 GIVEN 9Admin Note: VIS 12/27/2007 GIVEN 10Admin Note: VIS 01/01/07 GIVEN 11Admin Note: vis given 01/01/07 private 12Admin Note: vis given 09/23/2011 private state 13Admin Note: vis given. 09/23/2011 14Admin Note: VIS 06/10/2006 GIVEN 15Admin Note: [facility] Medications Abilify Tablet 15 mg, By Mouth, [...] 1 Refills, Maintenance, 10/07/18 15:51:43 EST, Nasal [place] Start Date: 10/07/18 Stop Date: 04/05/19 Status: [...] tablet, 4 Refills, Maintenance, 01/02/20 14:53:00 EST, [facility]/pharmacy #[id number], 1 tablet By Mouth [...]
--- OUTSIDE RECORDS SUMMARY | 2023-07-30 21:20 | XMS_ITS | Continuity of Care Document ---
Author Name Unknown Organization [facility] Address Unknown Care Team Providers Care Latin Professor Name Role Phone Nicolas DOWNS, Mayda Salguero Primary Care Physician [facility] Date[facility]s): 09/27/21 - 10/27/21 [facility] Allergies, Adverse Reactions, Alerts Substance [...] Gilles Cullen NP fluzone quadrivalent no preservatives [phone] 2Result Comment: [10/04/2016] Maria Luisa Marin NP [...] 14Admin Note: VIS 06/10/2006 GIVEN 15Admin Note: [facility] Medications Abilify Tablet 15 mg, [...]
--- OUTSIDE RECORDS SUMMARY | 2023-07-30 21:20 | XMS_ITS | Continuity of Care Document ---
Author Name Unknown Organization [facility] Address [address], 3r d Floor, [address] [place] [address]- Care Team Providers Care Washer Meat Name Role Phone Nicolas DOWNS, Mayda Salguero Primary Care Physician [facility] Date(s): 05/28/21 - 06/27/21 [facility] [address], 3rd Floor, [address] [place] [address]- Allergies, Adverse Reactions, Alerts Substance Reaction Severity [...] Gilles Cullen NP fluzone quadrivalent no preservatives [phone] 2Result Comment: [10/04/2016] Maria Luisa Marin NP [...] 14Admin Note: VIS 06/10/2006 GIVEN 15Admin Note: [facility] Medications Abilify Tablet 15 mg, [...] 02/12/21 13:51:00 EDT, NasalSpray, [facility]/pharmacy #[id number], 2 sprays Nares, Both Daily in AM,x90 [...] days, # 30 tablet, 6 Refills, Acute 12/26/21 11:43:00 EST, 05/30/21 11:43:00 EDT, Tablet, [facility]/pharmacy #[id number], Partial fill upon patient request if the prescription is for a schedule II opioid drug., 165, cm,... Start Date: 05/30/21 Stop Date: 12/26/21 Status: Ordered Melanol = 7.5 mg, Topically, [...] capsule 1 capsule, By Mouth, Daily, # 30 capsule, 0 Refills, Maintenance, 05/27/21 9:09:00 EDT, [id number], 165, cm, 04/30/21 9:11:00 EDT, Height, 95, kg, 03/14/21 15:50:00 EDT, Dry Weight Start Date: 05/27/21 Status: Ordered Seasonique oral tablet 1 tablet, By Mouth, Daily, Please keep upcoming scheduled annual appointment, # 91 tablet, 3 Refills, Maintenance, 03/14/21 15:58:00 EDT, [facility]/pharmacy #[id number], 1 tablet By Mouth Daily,Instr:Please keepupcoming scheduled annual appointment, 165, cm, ... Start Date: 03/14/21 Status: Ordered SUMAtriptan 50 mg oral tablet 1 tablet = 50 mg, By Mouth, Daily, PRN for migraine headache, # 9 tablet, 6 Refills, Soft Stop, 11/08/20 8:21:00 EST, Tablet, [facility]/pharmacy #[id number], increasing the dose, 165, cm, 10/23/20 [...] 08/28/20 8:08:00 EDT, Tablet, [facility]/pharmacy #[id number], 165, cm, 08/14/20 10:25:00 EDT, Height, 95, [...]
--- OUTSIDE RECORDS SUMMARY | 2023-07-30 21:20 | XMS_ITS | Continuity of Care Document ---
Author Name Unknown Organization [facility] Address [address] [place] [address]- Care Team Providers Care Yard Coordinator Name Role Phone Nicolas DOWNS, Mayda Salguero Primary Care Physician [facility] Date[facility]s): 09/16/21 - 10/16/21 [facility] [address] [place] [address]- [place] Allergies, Adverse Reactions, Alerts Substance Reaction [...] Gilles Cullen NP fluzone quadrivalent no preservatives [phone] 2Result Comment: [10/04/2016] Maria Luisa Marin NP [...] 14Admin Note: VIS 06/10/2006 GIVEN 15Admin Note: [facility] Medications Abilify Tablet 15 mg, By [...] Acute 06/23/22 9:09:00 EDT, 09/26/21 9:09:00 EDT, [facility], Partial fill upon patient request [...] Soft Stop, 11/08/20 8:21:00 EST, Tablet, [id number], increasing the dose, 165, cm, 10/23/20 14:38:00 [...]
--- OUTSIDE RECORDS SUMMARY | 2023-07-30 21:20 | XMS_ITS | Continuity of Care Document ---
Author Name Unknown Organization [facility] Address [address] [place] [address]- Care Team Providers Care Benefits Representative Name Role Phone Tomasa DOWNS, Ulises Primary Care Physici an [facility] Date[facility]s): 01/08/22 - 02/07/22 [facility] [address] [id number] Allergies, Adverse Reactions, Alerts Substance Reaction [...] Gilles Cullen NP fluzone quadrivalent no preservatives [phone] 2Result Comment: [10/04/2016] Maria Luisa Marin NP [...] 14Admin Note: VIS 06/10/2006 GIVEN 15Admin Note: [facility] Medications Abilify Tablet 15 mg, By Mouth, Daily, per Psych, Maintenance, 12/03/15 8:57:35 EST Start Date: 12/03/15 Status: Ordered Aleve 220 mg oral capsule 2 capsule = 440 mg, By Mouth, Once, PRN Pain , Moderate, # 40 capsule, 1 Refills, Soft Stop, 09/17/21 10:43:00 EDT, [facility], Partial fill upon patient request [...] mL, 3 Refills, Maintenance, 09/17/21 10:43:00 EDT, [facility], 2 sprays Nares, Both Daily in AM,x90 days, 165, cm, 04/30/21 9:11:00 EDT, Height, 95, kg, 03/14/21 15:50:00 EDT, Dry Weight Start Date: 09/17/21 Stop Date: 09/12/22 Status: Ordered ipratropium nasal 21 mcg/inh spray 2 sprays, Nares, Both, 2 times a day, # 30 mL, 1 Refills, Acute 02/11/22 9:24:00 EDT, 01/14/22 9:23:00 EST, [facility], Partial fill upon patient request [...] Start Date: 01/17/22 Status: Ordered nystatin topical 476815 u/gm cream 1 application, Topically, 2 times [...]
--- OUTSIDE RECORDS SUMMARY | 2023-07-30 21:20 | XMS_ITS | Continuity of Care Document ---
Author Name Unknown Organization [facility] Address Unknown Care Team Providers Care Fuel Management Handler Name Role Phone Noé DELA CRUZ, Windy Primary Care Physician Encounter [facility] Date(s): 06/12/22 - 07/12/22 [facility] Attending Physician: Con Rodriguez Admitting Physician: Con Rodriguez Referring Physician: AdmtrCon Allergies, Adverse Reactions, Alerts Substance Reaction Severity Status amoxicillin-clavulanate 1 Ac tive Augmentin Active LamISIL hives Active SEROquel 2 Active Adderall Psychomotor restless ness 07-APR-2015 22:24:19<$> Active Depakote Active ZyPREXA extreme weight gain Active 1rash 2elevates liver enzymes Immunizations Given [...] Gilles Cullen NP fluzone quadrivalent no preservatives [phone] 2Result Comment: [10/04/2016] Maria Luisa Marin NP [...] 14Admin Note: VIS 06/10/2006 GIVEN 15Admin Note: [facility] Medications Abilify Tablet 15 mg, [...] Start Date: 01/17/22 Status: Ordered nystatin topical 386738 u/gm cream 1 application, Topically, 2 times [...] 4PM., # 56 tablet, 5 Refills, [facility], 165, cm, 05/13/22 14:09:00 EDT, Height, 85.1, [...] II opioid drug., 165, cm, 04/30/21 9:11:00 LINDA H... Start Date: 09/30/21 Status: Ordered Problem [...]
--- OUTSIDE RECORDS SUMMARY | 2023-07-30 21:20 | XMS_ITS | Continuity of Care Document ---
Author Name Unknown Organization [facility] Address [address], 3r d Floor, [address] [place] [address]- Care Team Providers Care Biology Specimen Technician Name Role Phone Mayda Valenzuela MD Primary Care Physician [facility] Date[facility]s): 04/17/20 - 04/24/20 [facility] [address], [address] Floor, [address] [place] [address] [facility] Attending Physician: Anuj Shields MD Referring Physician: Mayda Valenzuela MD Allergies, [...] Gilles Cullen NP fluzone quadrivalent no preservatives [phone] 4Result Comment: [10/04/2016] Maria Luisa Marin NP [...] VIS 06/10/2006 GIVEN 15Admin Note: [facility] Medications Abilify Tablet 15 mg, By Mouth, [...] 1 Refills, Maintenance, 10/07/18 15:51:43 EST, Nasal [place] Start Date: 10/07/18 Stop Date: 04/05/19 Status: Ordered magnesium oxide 400 mg oral tablet 1 tablet = 400 mg, By Mouth, Daily, for 30 days, # 30 tablet, 6 Refills, Acute 11/13/20 9:06:00 EST, 04/17/20 9:06:00 EDT, Tablet, [facility]/pharmacy #[id number], 166, cm, 01/02/20 13:06:00 EST, Height, [...] capsule, 3 Refills, Maintenance, 01/18/20 11:59:00 EST, [facility]/pharmacy #[id number], 166, cm, 01/02/20 13:06:00 EST, Height, 91, kg, 12/13/19 15:40:00 EST, Dry Weight Start Date: 01/18/20 Status: Ordered Seasonique oral tablet 1 tablet, By Mouth, Daily, Please keep upcoming scheduled annual appointment, # 91 tablet, 4 Refills, Maintenance, 01/02/20 14:53:00 EST, [facility]/pharmacy #[id number], 1 tablet By Mouth Daily,Instr:Please keepupcoming scheduled annual appointment, 166, cm, 02/... Start Date: 01/02/20 Status: Ordered SUMAtriptan 25 mg oral tablet 1 tablet = 25 mg, By Mouth, Once, PRN for migraine headache, # 3 tablet, 4 Refills, Soft Stop, 04/17/20 9:13:00 EDT, Tablet, [facility]/pharm[facility] #[id number], 166, cm, 01/02/20 13:06:00 EST, Height, [...]
--- OUTSIDE RECORDS SUMMARY | 2023-07-30 21:20 | XMS_ITS | Continuity of Care Document ---
Author Name Unknown Organization [facility] Address [address] [place] [address]- Care Team Providers Care Cosmetic Consultant Name Role Phone Nicolas DOWNS, Mayda Salguero Primary Care Physician [facility]s): 01/23/21 - 02/22/[address] [address] Attending Physician: Con Rodriguez Admitting Physician: Con [...] Gilles Cullen NP fluzone quadrivalent no preservatives 4Result Comment: [10/04/2016] Maria Luisa Marin BRUISE TRIMMER 5Result Comment: [08/13/2015] Ordered by LOBITO Epps 6Result Comment: [11/04/2014] Gilles Cullen DNP 7Admin Note: private vis given screening questions negative 8Admin Note: VIS 07/10/2009 GIVEN 9Admin Note: VIS 12/27/2007 GIVEN 10Admin Note: VIS 01/01/07 GIVEN 11Admin Note: vis given 01/01/07 private 12Admin Note: vis given 09/23/2011 private state 13Admin Note: vis given. 09/23/2011 14Admin Note: VIS 06/10/2006 GIVEN 15Admin Note: [facility] Medications Abilify Tablet 15 mg, [...] 3 Refills, Maintenance, 02/12/21 13:51:00 EDT, [facility], [id number], 2 sprays Nares, Both Daily in AM,x90 [...] Refills, Maintenance, 11/17/20 13:07:00 EST, EC Tablet, [id number], 165, cm, 10/23/20 14:38:00 EST, Height, [...] Soft Stop, 11/08/20 8:21:00 EST, Tablet, [id number], increasing the dose, 165, cm, 10/23/20 [...] Refills, Soft Stop, 08/28/20 8:08:00 EDT, Tablet, [facility]/pharmacy #[id number], 165, cm, 08/14/20 10:25:00 [...]
--- OUTSIDE RECORDS SUMMARY | 2023-07-30 21:20 | XMS_ITS | Continuity of Care Document ---
Author Name Unknown Organization [facility] Address Unknown Care Team Providers Care Powertrain Engineer Name Role Phone Nicolas DOWNS, Mayda Salguero Primary Care Physician [facility] 10/01/21 - 10/31/21 [facility] Allergies, Adverse Reactions, Alerts Substance Reaction [...] Gilles Cullen NP fluzone quadrivalent no preservatives [phone] 2Result Comment: [10/04/2016] Maria Luisa Marin NP [...] 14Admin Note: VIS 06/10/2006 GIVEN 15Admin Note: [facility] Medications Abilify Tablet 15 mg, By [...]
--- OUTSIDE RECORDS SUMMARY | 2023-07-30 21:20 | XMS_ITS | Continuity of Care Document ---
Author Name Unknown Organization [facility] Address [address] [place] [address]- Care Team Providers Care Catering Truck Driver Name Role Phone Tomasa DOWNS, Ulises Primary Care Physici an Encounter [facility] Date(s): 01/01/22 - 02/07/[address] [address] Attending Physician: Kiley DELA CRUZ, Tresa Blood Admitting Physician: Kiley DELA CRUZ, Tresa Blood Referring Physician: Tresa Cao NP Allergies, Adverse Reactions, Alerts Substance Reaction Severity Status amoxicillin-clavulanate 1 Ac tive Augmentin Active ZyPREXA extreme weight gain Active Adderall Psychomotor restless ness 07-APR-2015 22:24:19<$> Active Depakote Active LamISIL hives Active 1rash [...] Gilles Cullen NP fluzone quadrivalent no preservatives [phone] 2Result Comment: [10/04/2016] Maria Luisa Marin NP [...] Acute 02/11/22 9:24:00 EDT, 01/14/22 9:23:00 EST, [place], Partial fill upon patient [...] Start Date: 01/17/22 Status: Ordered nystatin topical 546189 u/gm cream 1 application, Topically, 2 times [...] 0 Refills, Maintenance, 09/25/21 9:13:00 EDT, [facility], Partial fill upon patient [...] 4PM., # 56 tablet, 3 Refills, [facility], 165, cm, 01/14/22 9:19:00 EST, Height, 95, kg, 03/14/21 15:50:00 EDT, Dry Weight Start Date: 02/06/22 Status: Ordered Vitamin D3 2000 intl units oral tablet 1 tablet, By Mouth, Daily in AM, # 28 tablet, 5 Refills, [facility], 165, cm, 01/14/22 9:19:00 EST, Height, [...]
--- OUTSIDE RECORDS SUMMARY | 2023-07-30 21:20 | XMS_ITS | Continuity of Care Document ---
Author Name Unknown Organization [facility] Address Unknown Care Team Providers Care Top Lift Cutter Name Role Phone Nicolas DOWNS, Mayda Salguero Primary Care Physician [facility]s): 10/04/21 - 11/03/21 [facility] Allergies, Adverse Reactions, Alerts Substance [...] Gilles Cullen NP fluzone quadrivalent no preservatives [phone] 2Result Comment: [10/04/2016] Maria Luisa Marin NP [...] 15Admin Note: [facility] Medications Abilify Tablet 15 mg, By [...]
--- OUTSIDE RECORDS SUMMARY | 2023-07-30 21:20 | XMS_ITS | Continuity of Care Document ---
Author Name Unknown Organization [facility] Address [address] [place] [address]- Care Team Providers Care Mail Opener Name Role Phone Tomasa DOWNS, Ulises Primary Care Physici an [facility] Date(s): 01/15/22 - 02/14/22 [facility] [address] [address] Allergies, Adverse Reactions, Alerts Substance Reaction [...] Gilles Cullen NP fluzone quadrivalent no preservatives [phone] 2Result Comment: [10/04/2016] Maria Luisa Marin NP [...] Note: VIS 06/10/2006 GIVEN 15Admin Note: [facility] Medications Abilify Tablet 15 mg, By Mouth, [...] Start Date: 01/17/22 Status: Ordered nystatin topical 384225 u/gm cream 1 application, Topically, 2 times [...]
--- OUTSIDE RECORDS SUMMARY | 2023-07-30 21:20 | XMS_ITS | Continuity of Care Document ---
Author Name Unknown Organization [facility] Address Unknown Care Team Providers Care Guidance And Control System Engineer Name Role Phone Nicolas DOWNS, Mayda Salguero Primary Care Physician [facility] Date[facility]s): 07/05/21 - 08/04/21 [facility] Allergies, Adverse Reactions, Alerts Substance [...] Gilles Cullen NP fluzone quadrivalent no preservatives [phone] 2Result Comment: [10/04/2016] Maria Luisa Marin NP [...] 14Admin Note: VIS 06/10/2006 GIVEN 15Admin Note: [facility] Medications Abilify Tablet 15 mg, By [...] Refills, Maintenance, 02/12/21 13:51:00 EDT, NasalSpray, [facility]/pharmacy #[id number], 2 sprays Nares, Both Daily in [...] 02/11/22 15:37:00 EDT, 07/16/21 15:37:00 EDT, Tablet, [facility]/pharmacy #[id number], Partial fill upon patient request if [...] tablet, 3 Refills, Maintenance, 03/14/21 15:58:00 EDT, [facility]/pharmacy #[id number], 1 tablet By Mouth Daily,Instr:Please keepupcoming scheduled annual appointment, 165, cm, ... Start Date: 03/14/21 Status: Ordered SUMAtriptan 50 mg oral tablet 1 tablet = 50 mg, By Mouth, Daily, PRN for migraine headache, # 9 tablet, 6 Refills, Soft Stop, 11/08/20 8:21:00 EST, Tablet, [facility]/pharmacy #[id number], increasing the dose, 165, cm, 10/23/20 [...] Soft Stop, 08/28/20 8:08:00 EDT, Tablet, [facility]/pharmacy #[id number], 165, cm, 08/14/20 10:25:00 EDT, Height, [...]
--- OUTSIDE RECORDS SUMMARY | 2023-07-30 21:20 | XMS_ITS | Continuity of Care Document ---
Author Name Unknown Organization [facility] Address [address] [place] [address]- Care Team Providers Care Supervisor Sewing Department Name Role Phone Nicolas DOWNS, Mayda Salguero Primary Care Physician [facility]s): 09/16/21 - 10/16/21 [facility] [address] [place] [address]- [place] Allergies, Adverse Reactions, Alerts Substance Reaction [...] influenza virus vaccine, inactivated 4 11/04/14 Gi lotite influenza virus vaccine, inactivated 08/03/13 Give n [...] Gilles Cullen NP fluzone quadrivalent no preservatives [phone] 2Result Comment: [10/04/2016] Maria Luisa Marin NP [...] 14Admin Note: VIS 06/10/2006 GIVEN 15Admin Note: [facility] Medications Abilify Tablet 15 mg, By [...] Soft Stop, 11/08/20 8:21:00 EST, [facility], [id number], increasing the dose, 165, cm, 10/23/20 14:38:00 [...]
--- OUTSIDE RECORDS SUMMARY | 2023-07-30 21:20 | XMS_ITS | Continuity of Care Document ---
Author Name Unknown Organization [facility] Address [address] [facility], [address] d Floor, [address] [place] [address]- Care Team Providers Care Postal Superintendent Name Role Phone Nicolas DOWNS, Mayda Salguero Primary Care Physician [facility]): 11[facility]07[facility]20 - 12/07/20 [facility] [address], [address], [address] [place] [address] Allergies, Adverse Reactions, Alerts Substance Reaction Severity [...] Gilles Cullen NP fluzone quadrivalent no preservatives [phone] 4Result Comment: [10/04/2016] Maria Luisa Marin NP [...] 1 Refills, Maintenance, 10/07/18 15:51:43 EST, Nasal [place] Start Date: 10/07/18 Stop Date: 04/05/19 Status: [...] Refills, Maintenance, 11/17/20 13:07:00 EST, EC Tablet, [facility]/pharmacy #[id number], 165, cm, 10/23/20 14:38:00 EST, Height, 95.5, kg, 09/24/20 15:41:00 EDT, Dry Weight Start Date: 11/17/20 Status: Ordered Seasonique oral tablet 1 tablet, By Mouth, Daily, Please keep upcoming scheduled annual appointment, # 91 tablet, 4 Refills, Maintenance, 01/02/20 14:53:00 EST, [facility]/pharmacy #[id number], 1 tablet By Mouth Daily,Instr:Please keepupcoming scheduled annual appointment, 166, cm, ... Start Date: 01/02/20 Status: Ordered SUMAtriptan 50 mg oral tablet 1 tablet = 50 mg, By Mouth, Daily, PRN for migraine headache, # 9 tablet, 6 Refills, Soft Stop, 11/08/20 8:21:00 EST, Tablet, [facility]/pharmacy #[id number], increasing the dose, 165, cm, [...] Refills, Soft Stop, 08/28/20 8:08:00 EDT, Tablet, [facility]/pharmacy #[id number], 165, cm, 08/14/20 10:25:00 EDT, [...]
--- OUTSIDE RECORDS SUMMARY | 2023-07-30 21:20 | XMS_ITS | Continuity of Care Document ---
Author Name Unknown Organization [facility] Address [address] [place] [address]- Care Team Providers Care Laundry Marker Supervisor Name Role Phone Tomasa DOWNS, Ulises Primary Care Physici an Encounter [facility] Date(s): 01/14/22 - 02/13/22 [facility] [address] [address]- Attending Physician: Con Rodriguez Admitting Physician: AdmCon [...] Gilles Cullen NP fluzone quadrivalent no preservatives [id number] 2Result Comment: [10/04/2016] Maria Luisa Marin NP [...] 14Admin Note: VIS 06/10/2006 GIVEN 15Admin Note: [facility] Medications Abilify Tablet 15 mg, By Mouth, [...] Start Date: 01/17/22 Status: Ordered nystatin topical 400726 u/gm cream 1 application, Topically, 2 times [...]
--- OUTSIDE RECORDS SUMMARY | 2023-07-30 21:20 | XMS_ITS | Continuity of Care Document ---
Author Name Unknown Organization [facility] Address [address] [place] [address]- Care Team Providers Care Local Operator Name Role Phone Nicolas DOWNS, Mayda Salguero Primary Care Physician Encounter [facility] Date(s): 11/04/21 - 12/04/[address] [address] Attending Physician: Con Rodriguez Admitting [...] Gilles Cullen NP fluzone quadrivalent no preservatives [id number] 2Result Comment: [10/04/2016] Maria Luisa Marin NP [...] 14Admin Note: VIS 06/10/2006 GIVEN 15Admin Note: [facility] Medications Abilify Tablet 15 mg, By Mouth, Daily, per Psych, Maintenance, 12/03/15 8:57:35 EST Start Date: 12/03/15 Status: Ordered Aleve 220 mg oral capsule 2 capsule = 440 mg, By Mouth, Once, PRN Pain , Moderate, # 40 capsule, 1 Refills, Soft Stop, 09/17/21 10:43:00 EDT, [place], [facility], Partial fill [...] Ordered cholecalciferol 2000 intl units oral tablet 1 tablet = 50 mcg, By Mouth, Daily, # 30 tablet, 2 Refills, Maintenance, 11/26/21 16:10:00 EST, Tablet, [facility], Partial fill upon patient request if the prescription is for a schedule II opioid drug., 165, cm, 10/22/21 13:21:00 EST, He... Start Date: 11/26/21 Stop Date: 02/24/22 Status: Ordered clonazePAM 0.5 mg oral tablet = 1 mg, By Mouth, 3 times a day, 0 Refills, Maintenance, 07/16/20 18:19:00 EDT, Tablet Start Date: 07/16/20 Status: Ordered Co Q-10 100 mg oral capsule 1 capsule = 100 mg, By Mouth, Daily, # 90 capsule, 0 Refills, Maintenance, 11/27/21 13:05:00 EST, Capsule, [facility], Partial fill upon patient request if the prescription is for a schedule II opioid drug., 165, cm, 10/22/21 13:21:00 EST,... Start Date: 11/27/21 Status: Ordered cyanocobalamin 1000 mcg sublingual tablet [...] patient request Start Date: 10/23/20 Status: Ordered multivitamin Multiple Vitamins oral tablet 1 tablet, By Mouth, Daily, # 30 tablet, 2 Refills, Maintenance, 11/26/21 16:10:00 EST, Tablet, [facility], Partial fill upon patient request if the prescription is for a schedule II opioid drug., 1 tablet By Mouth Daily,x30 days, 165, cm,... Start Date: 11/26/21 Stop Date: 02/24/22 Status: Ordered omeprazole 20 mg oral enteric [...] Mouth Daily,Instr:Please keep upcoming scheduled annual appointment, lauren Williamson,... Start Date: 09/16/21 Status: Ordered selenium sulfide [...] for a schedule II opioid drug., 165, lauren, 04/30/21 9:11:00 EDT, H... Start Date: 10/16/21 Status: Ordered zinc (as acetate) 25 mg oral capsule 1 capsule = 25 mg, By Mouth, Daily, # 90 capsule, 0 Refills, Maintenance, 09/30/21 14:49:00 EDT, Capsule, [facility], Partial fill upon patient request if the prescription is for a schedule II opioid drug., 165, lauren, 04/30/21 9:11:00 EDT, H... Start Date: 09/30/21 [...]
--- OUTSIDE RECORDS SUMMARY | 2023-07-30 21:20 | XMS_ITS | Continuity of Care Document ---
Author Name Unknown [facility] Address [address], [address] [place] [address]- Care Team Providers Care Senior Property Accountant Name Role Phone Nicolas DOWNS, Mayda Salguero Primary Care Physician [place] [facility] Date(s): 09/30/21 - 10/30/21 [facility] [address] [place], [place] [address] Allergies, Adverse Reactions, Alerts Substance Reaction [...] Gilles Cullen NP fluzone quadrivalent no preservatives [id number] 2Result Comment: [10/04/2016] Maria Luisa Marin NP [...] 14Admin Note: VIS 06/10/2006 GIVEN 15Admin Note: [facility] Medications Abilify Tablet 15 mg, [...]
--- OUTSIDE RECORDS SUMMARY | 2023-07-30 21:20 | XMS_ITS | Continuity of Care Document ---
Author Name Unknown Organization [facility] Address [address] [place] [address]- Care Team Providers Care Manager Strategic Name Role Phone Noé DELA CRUZ, Windy Primary Care Physician Encounter [facility] Date(s): 02/26/22 - 03/28/[address] [address]- Allergies, Adverse Reactions, Alerts Substance Reaction Severity [...] Gilles Cullen NP fluzone quadrivalent no preservatives [id number] 2Result Comment: [10/04/2016] Maria Luisa Marin NP [...] 14Admin Note: VIS 06/10/2006 GIVEN 15Admin Note: [facility] Medications Abilify Tablet 15 mg, By [...] Start Date: 01/17/22 Status: Ordered nystatin topical 137499 u/gm cream 1 application, Topically, 2 times [...]
--- OUTSIDE RECORDS SUMMARY | 2023-07-30 21:21 | XMS_ITS | Continuity of Care Document ---
Author Name Unknown Organization [facility] Address [address] [place] [address]- Care Team Providers Care Piece Meat Trimmer Name Role Phone Nicolas DOWNS, Mayda P Primary Care Physician Encounter [facility] Date(s): 02/16/20 - 02/26/[address] [address] [facility] Attending Physician: Con Rodriguez Admitting Physician: Con [...] 13 12/17/11 Given influenza virus vaccine, live 9/28/10 Given Tet/Diphth/Acel, Pertussis (oldterm) 14 12/11/09 G [...] Gilles Cullen NP fluzone quadrivalent no preservatives [id number] 4Result Comment: [10/04/2016] Maria Luisa Marin NP [...] 14Admin Note: VIS 06/10/2006 GIVEN 15Admin Note: [facility] Medications Abilify Tablet 15 mg, [...] 1 Refills, Maintenance, 10/07/18 15:51:43 EST, Nasal [place] Start Date: 10/07/18 Stop Date: 04/05/19 Status: [...] capsule, 3 Refills, Maintenance, 01/18/20 11:59:00 EST, [id number], 166, cm, 01/02/20 13:06:00 EST, Height, [...]
--- OUTSIDE RECORDS SUMMARY | 2023-07-30 21:21 | XMS_ITS | Continuity of Care Document ---
Author Name Unknown Organization [facility] Address [address] [place] [address]- Care Team Providers Care Veneer Production Machine Operator Name Role Phone Noé DELA CRUZ, Windy Primary Care Physician Encounter [facility] Date(s): 07/11/22 - 08/16/[address] [address] Attending Physician: Noé DELA CRUZ, Windy Admitting Physician: Windy Umanzor NP Allergies, Adverse Reactions, Alerts Substance Reaction Severity Status amoxicillin-clavulanate 1 Ac tive Augmentin Active Adderall Psychomotor restless ness 07-APR-2015 22:24:19<$> Active Depakote Active SEROquel 2 Active LamISIL hives Active ZyPREXA extreme weight [...] Gilles Cullen NP fluzone quadrivalent no preservatives [phone] 2Result Comment: [10/04/2016] Maria Luisa Marin NP [...] 14Admin Note: VIS 06/10/2006 GIVEN 15Admin Note: [facility] Medications Abilify Tablet 15 mg, By Mouth, Daily, per Psych, Maintenance, 12/03/15 8:57:35 EST Start Date: 12/03/15 Status: Ordered acetaminophen 325 mg oral tablet 650 mg, 2, tablet, By Mouth, Every 4 hours, PRN, q 4 hours PRN pain or for temp over 100, # 30 tablet, Refills 0, Tot. Refills 0, Maintenance, as needed for fever, 08/03/22 8:18:00 EDT, Route to Pharmacy Electronically, [facility], Partial... Start Date: 08/03/22 Status: Ordered Atrovent HFA Inhaler 500 mcg, Neb, 4 times a day, Refills 0, Maintenance, 03/05/22 9:22:00 EDT Start Date: 03/05/22 Status: Ordered clonazePAM 0.5 mg oral tablet = 1 mg, By Mouth, 3 times a day, 0 Refills, Maintenance, 07/16/20 18:19:00 EDT, Tablet Start Date: 07/16/20 Status: Ordered CO Q-10 100 MG SOFTGEL CO Q-10 100 MG SOFTGEL, 1, capsule, By Mouth, Daily, # 28 capsule, 0 Refills, 165, cm, 01/14/22 9:19:00 EST, Height, 95, kg, 03/14/21 15:50:00 EDT, Dry Weight Start Date: 02/06/22 Status: Ordered CO Q-10 100 MG SOFTGEL CO Q-10 100 MG SOFTGEL, 1, capsule, By Mouth, Daily in AM, # 28 capsule, 5 Refills, 165, cm, 03/05/22 9:10:00 EDT, Height, 95, kg, 03/14/21 15:50:00 EDT, Dry Weight Start Date: 04/04/22 Status: Ordered CO Q-10 100 MG SOFTGEL CO Q-10 100 MG SOFTGEL, 1, capsule, By Mouth, Daily, # 28 capsule, 0 Refills, 165, cm, 03/05/22 9:10:00 EDT, Height, 95, kg, 03/14/21 15:50:00 EDT, Dry Weight Start Date: 03/07/22 Status: Ordered Co-Q10 100 mg oral capsule 1 capsule = 100 mg, By Mouth, Daily in AM, # 90 capsule, 3 Refills, Maintenance, 08/03/22 8:23:00 EDT, Capsule, [facility], Partial fill upon patient request if the prescription is for a schedule II opioid drug., 165, cm, 05/13/22 14:09:00... Start Date: 08/03/22 Status: Ordered Daily Cristina oral tablet 1 tablet, By Mouth, Daily at bedtime, # 28 tablet, 5 Refills, Maintenance, 08/07/22 13:16:00 EDT, [facility], 0, 1 tablet By Mouth Daily at bedtime, 165, cm, 05/13/22 14:09:00 EDT, Height, 85.1, kg, 05/09/22 10:09:00 EDT, Dry Weight Start Date: 08/07/22 Status: Ordered Flonase 50 mcg/inh nasal spray [...] 2 times a day, # 30 mL, 3 Refills, Acute 08/14/23 12:00:00 EDT, 08/14/22 12:02:00 EDT, [place], [facility], Partial fill upon patient request if the prescription is for a schedule II opioid drug., 2 sprays Nares, Both... Start Date: 08/14/22 Stop Date: 08/14/23 Status: Ordered magnesium oxide 400 mg oral [...] opioid drug.,... Start Date: 01/17/22 Status: Ordered naproxen sodium 220 mg oral tablet 2 tablet = 440 mg, By Mouth, Every 8 hours, PRN as needed for pain, PRN for headache or migraine, #40 tablet, 0 Refills, Maintenance, 08/03/22 8:20:00 EDT, Tablet, [facility], Partial fill upon patient request if the prescription is for a... Start Date: 08/03/22 Status: Ordered nystatin topical 387384 u/gm cream 1 application, Topically, 2 times a day, as needed for fungal rash, # 15 Gm, 0 Refills, Maintenance, 08/03/22 8:25:00 EDT, Cream, [facility], Partial fill upon patient request if the prescription is for a schedule II opioid drug., 1 applic... Start Date: 08/03/22 Status: Ordered omeprazole 20 mg oral enteric coated capsule 1 capsule, By Mouth, Daily, # 30 capsule, 2 Refills, Maintenance, 08/07/22 13:16:00 EDT, [facility], 165, cm, 05/13/22 14:09:00 EDT, Height, 85.1, kg, 05/09/22 10:09:00 EDT, Dry Weight Start Date: 08/07/22 Status: Ordered ondansetron 4 mg oral tablet [...] 4PM., # 56 tablet, 5 Refills, [facility], 165, cm, 05/13/22 14:09:00 EDT, Height, 85.1, kg, 05/09/22 10:09:00 EDT, Dry Weight Start Date: 06/13/22 Status: Ordered Vitamin D3 2000 intl units oral tablet 1 tablet, By Mouth, Daily in AM, # 28 tablet, 5 Refills, 07/25/22 13:55:00 EDT, [facility], 165, cm, 05/13/22 14:09:00 EDT, Height, 85.1, kg, 05/09/22 10:09:00 EDT, Dry Weight Start Date: 07/25/22 Status: Ordered Wedge Pillow Wedge Pillow, See [...] 100 in lifetime) entered on: 03/14/21 Sex Care Team Personnel Name: Windy Umanzor NP Address: [address] [place] [address]
--- OUTSIDE RECORDS SUMMARY | 2023-07-30 21:21 | XMS_ITS | Continuity of Care Document ---
Author Name Unknown Organization [facility] Address [address], [address] [place] [address]- Care Team Providers Care Garbage Collector Name Role Phone Kiley DELA CRUZ, Tresa Blood Primary Care Physician Encounter [facility] Date(s): 11/20/21 - 12/20/21 [facility] [address] [place] [address]- Allergies, Adverse Reactions, Alerts Substance Reaction Severity [...] Gilles Cullen NP fluzone quadrivalent no preservatives [id number] 2Result Comment: [10/04/2016] Maria Luisa Marin NP [...] 14Admin Note: VIS 06/10/2006 GIVEN 15Admin Note: [facility] Medications Abilify Tablet 15 mg, [...] Date: 11/26/21 Stop Date: 02/24/22 Status: Ordered nystatin topical 171498 u/gm cream 1 application, Topically, 2 times [...] Mouth Daily,Instr:Please keep upcoming scheduled annual appointment, 165lauren,... Start Date: 09/16/21 Status: Ordered selenium sulfide [...]
--- OUTSIDE RECORDS SUMMARY | 2023-07-30 21:21 | XMS_ITS | Continuity of Care Document ---
Author Name Unknown Organization [facility] Address [address] [place] [address]- Care Team Providers Care Bilingual Nanny Name Role Phone Noé DELA CRUZ, Windy Primary Care Physician [facility] Date(s): 01/27/22 - 02/26/22 [facility] [address] [place] [address] Allergies, Adverse Reactions, Alerts Substance Reaction Severity Status amoxicillin-clavulanate 1 Ac tive Augmentin Active Depakote Active LamISIL hives Active ZyPREXA extreme weight gain Active Adderall Psychomotor restless ness 07-APR-2015 22:24:19<$> Active 1rash Immunizations Given and Recorded Vaccine [...] Gilles Cullen NP fluzone quadrivalent no preservatives [id number] 2Result Comment: [10/04/2016] Maria Luisa Marin NP [...] 14Admin Note: VIS 06/10/2006 GIVEN 15Admin Note: [facility] Medications Abilify Tablet 15 mg, [...] Start Date: 01/17/22 Status: Ordered nystatin topical 027115 u/gm cream 1 application, Topically, 2 times [...] Dry Weight Start Date: 02/18/22 Status: Ordered riboflavin 400 mg oral capsule [...]
--- OUTSIDE RECORDS SUMMARY | 2023-07-30 21:21 | XMS_ITS | Continuity of Care Document ---
Author Name Unknown Organization [facility] Address Unknown Care Team Providers Care Apple Checker Name Role Phone Tomasa DOWNS, Ulises Primary Care Physici an Encounter [facility] Date(s): 02/06/22 - 02/13/22 [facility] Attending Physician: Sofia Felix MD Referring [...] Gilles Cullen NP fluzone quadrivalent no preservatives [id number] 2Result Comment: [10/04/2016] Maria Luisa Marin NP [...] 14Admin Note: VIS 06/10/2006 GIVEN 15Admin Note: [facility] Medications Abilify Tablet 15 mg, By [...] a schedule II opioid drug., 165, cm, 0... Start Date: 09/17/21 Status: Ordered clonazePAM 0.5 [...] Start Date: 01/17/22 Status: Ordered nystatin topical 672922 u/gm cream 1 application, Topically, 2 times [...]
--- OUTSIDE RECORDS SUMMARY | 2023-07-30 21:21 | XMS_ITS | Continuity of Care Document ---
Author Name Unknown Organization [facility] Address [address] [place] [address]- Care Team Providers Care Notary Public Name Role Phone Kiley DELA CRUZ, Tresa Blood Primary Care Physician ( [phone] Encounter [facility] Date(s): 11/26/21 - 12/26/21 [facility] [address] [place] [address]- [place] Allergies, Adverse Reactions, Alerts Substance Reaction [...] Gilles Cullen NP fluzone quadrivalent no preservatives [phone] 2Result Comment: [10/04/2016] Maria Luisa Marin NP [...] 14Admin Note: VIS 06/10/2006 GIVEN 15Admin Note: [facility] Medications Abilify Tablet 15 [...] opioid drug. Start Date: 10/16/21 Status: Ordered B-12 500 mcg sublingual tablet 2 tablet, By Mouth, Daily, # 112 tablet, 0 Refills, [facility], 165, cm, 10/22/21 13:21:00 EST, Height, 95, kg, 03/14/21 15:50:00 EDT, Dry Weight Start Date: 12/22/21 Status: Ordered cholecalciferol 2000 intl units oral [...] 13:21:00 EST,... Start Date: 11/27/21 Status: Ordered Flonase 50 mcg/inh nasal spray [...] tablet, 2 Refills, Maintenance, 11/26/21 16:10:00 EST, [facility], Partial fill upon patient request if the prescription is for a schedule II opioid drug., 1 tablet By Mouth Daily,x30 days, 165, cm,... Start Date: 11/26/21 Stop Date: 02/24/22 Status: Ordered nystatin topical 209780 u/gm cream 1 application, Topically, 2 times a day, # 15 Gm, 0 Refills, Maintenance, 12/11/21 14:45:00 EST, [facility], Partial fill upon patient request [...] 30 capsule, 6 Refills, Maintenance, 10/03/21 16:19:[facility], Partial fill upon patient [...] for a schedule II opioid drug., 165lauren, 04/30/21 9:11:00 EDT, H... Start Date: 10/16/21 Status: Ordered zinc (as acetate) 25 mg oral capsule 1 capsule = 25 mg, By Mouth, Daily, # 90 capsule, 0 Refills, Maintenance, 09/30/21 14:49:00 EDT, Capsule, [facility], Partial fill upon patient request if the prescription is for a schedule II opioid drug., lauren Williamson, 04/30/21 9:11:00 EDT, H... Start Date: 09/30/21 [...]
--- OUTSIDE RECORDS SUMMARY | 2023-07-30 21:21 | XMS_ITS | Continuity of Care Document ---
Author Name Unknown Organization [facility] Address [address], [address] [place] [address]- Care Team Providers Care Analysis Director Name Role Phone Nicolas DOWNS, Mayda Salguero Primary Care Physician [facility]counter [facility] Date(s): 01/02/20 - 01/09/20 [facility] [address], [address] [place] [address]- Attending Physician: Kandi Justice MD Referring Physician: Mayda Valenzuela MD Allergies, [...] Gilles Cullen NP fluzone quadrivalent no preservatives [phone] 4Result Comment: [10/04/2016] Maria Luisa Marin RETAIL COMMISSION SALES ASSOCIATE 5Result Comment: [08/13/2015] Ordered by LOBITO Epps 6Result Comment: [11/04/2014] Gilles Cullen DNP 7Admin Note: private vis given screening questions negative 8Admin Note: VIS 07/10/2009 GIVEN 9Admin Note: VIS 12/27/2007 GIVEN 10Admin Note: VIS 01/01/07 GIVEN 11Admin Note: vis given 01/01/07 private 12Admin Note: vis given 09/23/2011 private state 13Admin Note: vis given. 09/23/2011 14Admin Note: VIS 06/10/2006 GIVEN 15Admin Note: [facility] Medications Abilify Tablet 15 mg, By Mouth, [...] 1 Refills, Maintenance, 10/07/18 15:51:43 EST, Nasal [place] Start Date: 10/07/18 Stop Date: 04/05/19 Status: [...] tablet, 4 Refills, Maintenance, 01/02/20 14:53:00 EST, [id number], 1 tablet By Mouth Daily,Instr:Please [...] abdominal pain(Confirmed) Active Sensory-neural hearing loss(Confirmed)(Stable) Active Procedures Procedure Date Related Diagnosis Body Site Status Cholecystectomy 09/2018 Completed Vital Signs Most recent to oldest [Reference Range]: 1 Height 166 cm (01/02/20 1:06 PM) Weight 92.9 kg (01/02/20 1:06 PM) Body Mass Index [18.5-24.99] 33.71 *>HHI* (01/02/20 1:06 PM) Blood Pressure [90-138/55-84 mm Hg] 118/ 60mm Hg (01/02/20 1:06 PM) Blood pressure sites Arm, right (01/02/20 1:06 PM) Weight Obtained Via Standing scale (01/02/20 1:06 PM) Social History Social History Type Response Smoking Status Never (less than 100 in lifetime) entered on: 10/18/18 Sex
--- OUTSIDE RECORDS SUMMARY | 2023-07-30 21:21 | XMS_ITS | Continuity of Care Document ---
Author Name Unknown Organization [facility] Address Unknown Care Team Providers Care Cafeteria Assistant Name Role Phone Nicolas DOWNS, Mayda Salguero Primary Care Physician Encounter [facility] Date(s): 09/30/21 - 10/30/21 [facility] Allergies, Adverse Reactions, Alerts Substance Reaction Severity Status amoxicillin-clavulanate 1 Ac tive Augmentin Active Depakote Active ZyPREXA extreme weight gain Active LamISIL hives Active Adderall Psychomotor restless ness 07-APR-2015 22:24:19<$> [...] Gilles Cullen NP fluzone quadrivalent no preservatives [id number] 2Result Comment: [10/04/2016] Maria Luisa Marin NP [...] VIS 06/10/2006 GIVEN 15Admin Note: [facility] Medications Abilify Tablet 15 mg, By [...] 3 Refills, Maintenance, 09/17/21 10:43:00 EDT, Tablet, [facility], Partial fill upon patient request [...]
--- OUTSIDE RECORDS SUMMARY | 2023-07-30 21:21 | XMS_ITS | Continuity of Care Document ---
Author Name Unknown Organization [facility] Address [address], [address] [place] [address]- Care Team Providers Care Parachute Inspector Name Role Phone Nicolas DOWNS, Mayda Salguero Primary Care Physician Encounter [facility] Date(s): 01/02/20 - 01/12/20 [facility] [address], [address] [place] [address]- Attending Physician: Con Rodriguez Admitting Physician: Con Rodriguez Referring Physician: Admtr, Ar8 Allergies, Adverse Reactions, Alerts Substance Reaction Severity [...] Gilles Cullen NP fluzone quadrivalent no preservatives [phone] 4Result Comment: [10/04/2016] Maria Luisa Marin 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 09/23/2011 14Admin Note: VIS 06/10/2006 GIVEN 15Admin Note: [facility] Medications Abilify Tablet 15 mg, By Mouth, [...] 1 Refills, Maintenance, 10/07/18 15:51:43 EST, Nasal [place] Start Date: 10/07/18 Stop Date: 04/05/19 Status: [...] tablet, 4 Refills, Maintenance, 01/02/20 14:53:00 EST, [facility]/pharmacy #[id number], 1 tablet By Mouth [...]
--- OUTSIDE RECORDS SUMMARY | 2023-07-30 21:21 | XMS_ITS | Continuity of Care Document ---
Author Name Unknown Organization [facility] Address Unknown Care Team Providers Care Printer Slotter Feeder Name Role Phone Nicolas DOWNS, Mayda Salguero Primary Care Physician Encounter [facility] Date(s): 07/15/21 - 08/14/21 [facility] Allergies, Adverse Reactions, Alerts [...] Gilles Cullen NP fluzone quadrivalent no preservatives [phone] 2Result Comment: [10/04/2016] Maria Luisa Marin NP [...] 14Admin Note: VIS 06/10/2006 GIVEN 15Admin Note: [facility] Medications Abilify Tablet 15 mg, By [...] 3 Refills, Maintenance, 02/12/21 13:51:00 EDT, NasalSpray, [facility]/pharmacy #[id number], 2 sprays Nares, Both Daily in [...] 02/11/22 15:37:00 EDT, 07/16/21 15:37:00 EDT, Tablet, [facility]/pharmacy #[id number], Partial fill upon patient request if [...] tablet, 3 Refills, Maintenance, 03/14/21 15:58:00 EDT, [facility]/pharmacy #[id number], 1 tablet By Mouth Daily,Instr:Please keepupcoming scheduled annual appointment, 165, cm, ... Start Date: 03/14/21 Status: Ordered SUMAtriptan 50 mg oral tablet 1 tablet = 50 mg, By Mouth, Daily, PRN for migraine headache, # 9 tablet, 6 Refills, Soft Stop, 11/08/20 8:21:00 EST, Tablet, [facility]/pharmacy #[id number], increasing the dose, 165, cm, 10/23/20 [...] Maintenance, 03/01/19 8:41:05 EDT, Compound Start Date: 4/2/19 Status: Ordered Vitamin C 500 mg oral [...] Refills, Soft Stop, 08/28/20 8:08:00 EDT, Tablet, [facility]/pharmacy #[id number], 165, cm, 08/14/20 10:25:00 EDT, Height, [...]
--- OUTSIDE RECORDS SUMMARY | 2023-07-30 21:21 | XMS_ITS | Continuity of Care Document ---
Author Name Unknown Organization [facility] Address Unknown Care Team Providers Care Carpet Installation Specialist Name Role Phone Noé DELA CRUZ, Windy Primary Care Physician Encounter [facility] Date(s): 04/08/22 - 05/08/22 [facility] Allergies, Adverse Reactions, Alerts Substance [...] Gilles Cullen NP fluzone quadrivalent no preservatives [id number] 2Result Comment: [10/04/2016] Maria Luisa Marin NP [...] 14Admin Note: VIS 06/10/2006 GIVEN 15Admin Note: [facility] Medications Abilify Tablet 15 mg, By [...] Start Date: 01/17/22 Status: Ordered nystatin topical [id number] u/gm cream 1 application, Topically, 2 times [...]
--- OUTSIDE RECORDS SUMMARY | 2023-07-30 21:21 | XMS_ITS | Continuity of Care Document ---
Author Name Unknown Organization [facility] Address [address] [facility], [address] Floor, [address] [place] [phone]- Care Team Providers Care Ward Nurse Name Role Phone Nicolas DOWNS, Mayda P Primary Care Physician Encounter [facility] Date(s): 04/17/20 - 05/17/20 [facility] [address], [address] Floor, [address] [place] [address]- [facility] Attending Physician: Con Rodriguez Admitting Physician: Con Rodriguez Referring Physician: AdmCon tang Allergies, Adverse Reactions, [...] Gilles Cullen NP fluzone quadrivalent no preservatives [id number] 4Result Comment: [10/04/2016] Maria Luisa Tomas DISTRIBUTION MANAGER 5Result Comment: [08/13/2015] Ordered by LOBITO Epps 6Result Comment: [11/04/2014] Gilles Cullen DNP 7Admin Note: private vis given screening questions negative 8Admin Note: VIS 07/10/2009 GIVEN 9Admin Note: VIS 12/27/2007 GIVEN 10Admin Note: VIS 01/01/07 GIVEN 11Admin Note: vis given 01/01/07 private 12Admin Note: vis given 09/23/2011 private state 13Admin Note: vis given. 09/23/2011 14Admin Note: VIS 06/10/2006 GIVEN 15Admin Note: [facility] Medications Abilify Tablet 15 mg, By Mouth, [...] 1 Refills, Maintenance, 10/07/18 15:51:43 EST, Nasal [place] Start Date: 10/07/18 Stop Date: 04/05/19 Status: Ordered magnesium oxide 400 mg oral tablet 1 tablet = 400 mg, By Mouth, Daily, for 30 days, # 30 tablet, 6 Refills, Acute 11/13/20 9:06:00 EST, 04/17/20 9:06:00 EDT, Tablet, [facility]/pharmacy #[id number], 166, cm, 01/02/20 13:06:00 EST, Height, 91, [...] capsule, 3 Refills, Maintenance, 01/18/20 11:59:00 EST, [facility]/pharmacy #[id number], 166, cm, 01/02/20 13:06:00 EST, Height, [...] Refills, Soft Stop, 04/17/20 9:13:00 EDT, Tablet, [facility]/pharmacy #[id number], 166, cm, 01/02/20 13:06:00 EST, Height, [...]
--- OUTSIDE RECORDS SUMMARY | 2023-07-30 21:21 | XMS_ITS | Continuity of Care Document ---
Author Name Unknown Organization [facility] Address [address] [place] [address]- Care Team Providers Care Machine Packaging Technician Name Role Phone Nicolas DOWNS, Mayda Salguero Primary Care Physician Encounter [facility] Date(s): 08/03/20 - 09/02/[address] [address]- [facility] Attending Physician: Con Rodriguez Admitting Physician: Con Rodriguez Referring Physician: AdmCon tang Allergies, Adverse Reactions, Alerts Substance Reaction Severity Status amoxicillin-clavulanate 1 Ac tive Adderall Psychomotor restless ness 07-APR-2015 22:24:19<$> Active ZyPREXA extreme weight gain Active LamISIL hives Active 1rash Immunizations Given [...] preservatives 4Result Comment: [10/04/2016] Maria Luisa Marin DYER ASSISTANT 5Result Comment: [08/13/2015] Ordered by LOBITO Epps 6Result Comment: [11/04/2014] Gilles Cullen DNP 7Admin Note: private vis given screening questions negative 8Admin Note: VIS 07/10/2009 GIVEN 9Admin Note: VIS 12/27/2007 GIVEN 10Admin Note: VIS 01/01/07 GIVEN 11Admin Note: vis given 01/01/07 private 12Admin Note: vis given 09/23/2011 private state 13Admin Note: vis given. 09/23/2011 14Admin Note: VIS 06/10/2006 GIVEN 15Admin Note: [facility] Medications Abilify 10 mg oral tablet 10 mg, 1, tablet, By Mouth, Daily at bedtime, # 30 tablet, Refills 0, Maintenance, 07/16/20 18:20:00 EDT Start Date: 07/16/20 Status: Ordered Abilify Tablet 15 mg, By Mouth, Daily, per Psych, Maintenance, 12/03/15 8:57:35 EST Start Date: 12/03/15 Status: Ordered clonazePAM 0.5 mg oral tablet 1 tablet = 0.5 mg, By Mouth, 2 times a day, 0 Refills, Maintenance, 07/16/20 18:19:00 EDT, Tablet Start Date: 07/16/20 Status: Ordered clonazePAM 1 mg oral tablet 1 tablet = 1 mg, By Mouth, 2 times a day, 0 Refills, Maintenance, 02/14/19 15:49:34 EDT, Tablet Start Date: 02/14/19 Status: Ordered Flonase 50 mcg/inh nasal spray 1 sprays = 50 mcg, Nares, Both, Daily in AM, # 15.8 mL, 1 Refills, Maintenance, 10/07/18 15:51:43 EST, Nasal [place] Start Date: 10/07/18 Stop Date: 04/05/19 Status: [...] 11/13/20 9:06:00 EST, 04/17/20 9:06:00 EDT, Tablet, [facility]/pharmacy #[id number], 166, cm, 01/02/20 13:06:00 EST, [...] = 20 mg, By Mouth, Daily, # 120 tablet, 0 Refills, Maintenance, 07/16/20 18:21:00 EDT, EC Tablet Start Date: 07/16/20 Status: Ordered Seasonique oral tablet 1 tablet, By Mouth, Daily, Please keep upcoming scheduled annual appointment, # 91 tablet, 4 Refills, Maintenance, 01/02/20 14:53:00 EST, [facility]/pharmacy #[id number], 1 tablet By Mouth Daily,Instr:Please [...] EDT, Tablet Start Date: 07/16/20 Status: Ordered Zithromax Z-Kamran 250 mg oral tablet 1 pack/packet, By Mouth, Once, as directed on package labeling. 2 tablets first day, then one p.o daily, # 6 tablet, 0 Refills, Soft Stop, 08/28/20 8:08:00 EDT, Tablet, [facility]/pharmacy #[id number], 165, cm, 08/14/20 10:25:00 EDT, [...]
--- OUTSIDE RECORDS SUMMARY | 2023-07-30 21:21 | XMS_ITS | Continuity of Care Document ---
Author Name Unknown Organization [facility] Address Unknown Care Team Providers Care Formation Fracturing Operator Name Role Phone Noé DELA CRUZ, Windy Primary Care Physician [place] [facility] Date[place]s): 05/01/22 - 05/31/22 [facility] Allergies, Adverse Reactions, Alerts Substance [...] Gilles Cullen NP fluzone quadrivalent no preservatives [id number] 2Result Comment: [10/04/2016] Maria Luisa Marin NP [...] 14Admin Note: VIS 06/10/2006 GIVEN 15Admin Note: [facility] Medications Abilify Tablet 15 mg, By [...] Start Date: 01/17/22 Status: Ordered nystatin topical [id number] u/gm cream 1 application, Topically, 2 times [...]
--- OUTSIDE RECORDS SUMMARY | 2023-07-30 21:21 | XMS_ITS | Continuity of Care Document ---
Author Name Unknown Organization [facility] Address [address] [place] [address]- Care Team Providers Care Concession Supervisor Name Role Phone Noé DELA CRUZ, Windy Primary Care Physician Encounter [facility] Date(s): 02/18/22 - 03/20/[address] [address] Attending Physician: Con Rodriguez Admitting [...] Gilles Cullen NP fluzone quadrivalent no preservatives [id number] 2Result Comment: [10/04/2016] Maria Luisa Marin NP [...] 14Admin Note: VIS 06/10/2006 GIVEN 15Admin Note: [facility] Medications Abilify Tablet 15 mg, By [...] Start Date: 01/17/22 Status: Ordered nystatin topical [id number] u/gm cream 1 application, Topically, 2 times [...]
--- OUTSIDE RECORDS SUMMARY | 2023-07-30 21:21 | XMS_ITS | Continuity of Care Document ---
Author Name Unknown Organization [facility] Address [address] [place] [phone]- Care Team Providers Care Marketing Analytics Manager Name Role Phone Nicolas DOWNS, Mayda Salguero Primary Care Physician Encounter [facility] Date(s): 01/10/20 - 04/10/[address] [address]- [facility] Discharge Disposition: A-D/C Home Attending Physician: Corona Reid NP Admitting Physician: Corona Reid NP Referring Physician: Corona Reid NP Allergies, Adverse Reactions, Alerts Substance Reaction [...] Gilles Cullen NP fluzone quadrivalent no preservatives [phone] 4Result Comment: [10/04/2016] Maria Luisa Tomas RUBBER INSULATOR 5Result Comment: [08/13/2015] Ordered by LOBITO Epps 6Result Comment: [11/04/2014] Gilles Cullen DNP 7Admin Note: private vis given screening questions negative 8Admin Note: VIS 07/10/2009 GIVEN 9Admin Note: VIS 12/27/2007 GIVEN 10Admin Note: VIS 01/01/07 GIVEN 11Admin Note: vis given 01/01/07 private 12Admin Note: vis given 09/23/2011 private state 13Admin Note: vis given. 09/23/2011 14Admin Note: VIS 06/10/2006 GIVEN 15Admin Note: [facility] Medications Abilify Tablet 15 mg, By [...] 1 Refills, Maintenance, 10/07/18 15:51:43 EST, Nasal [place] Start Date: 10/07/18 Stop Date: 04/05/19 Status: [...] capsule, 3 Refills, Maintenance, 01/18/20 11:59:00 EST, [facility]/pharmacy #[id number], 166, cm, 01/02/20 13:06:00 [...]
--- OUTSIDE RECORDS SUMMARY | 2023-07-30 21:21 | XMS_ITS | Continuity of Care Document ---
Author Name Unknown Organization [facility] Address [address] [facility], 3r d Floor, [address] [place] [phone]- Care Team Providers Care Optometric Assistant Name Role Phone Nicolas DOWNS, Mayda Salguero Primary Care Physician En[place] [facility] Date(s): 12/13/20 - 01/12/21 [facility] [address], [address], [address] [place] [address] Attending Physician: Con Rodriguez Admitting Physician: [...] Gilles Cullen NP fluzone quadrivalent no preservatives [id number] 4Result Comment: [10/04/2016] Maria Luisa Marin NP [...] Note: VIS 06/10/2006 GIVEN 15Admin Note: [facility] Medications Abilify Tablet 15 mg, By [...] 1 Refills, Maintenance, 10/07/18 15:51:43 EST, Nasal [place] Start Date: 10/07/18 Stop Date: 04/05/19 Status: [...] Refills, Maintenance, 11/17/20 13:07:00 EST, EC Tablet, [facility]/pharmacy #[id number], 165, cm, 10/23/20 14:38:00 EST, Height, 95.5, kg, 09/24/20 15:41:00 EDT, Dry Weight Start Date: 11/17/20 Status: Ordered Seasonique oral tablet 1 tablet, By Mouth, Daily, Please keep upcoming scheduled annual appointment, # 91 tablet, 4 Refills, Maintenance, 01/02/20 14:53:00 EST, [facility]/pharmacy #[id number], 1 tablet By Mouth Daily,Instr:Please keepupcoming scheduled annual appointment, 166, cm, ... Start Date: 01/02/20 Status: Ordered SUMAtriptan 50 mg oral tablet 1 tablet = 50 mg, By Mouth, Daily, PRN for migraine headache, # 9 tablet, 6 Refills, Soft Stop, 11/08/20 8:21:00 EST, Tablet, [facility]/pharmacy #[id number], increasing the dose, 165, cm, [...] Refills, Soft Stop, 08/28/20 8:08:00 EDT, Tablet, [facility]/pharmacy #[id number], 165, cm, 08/14/20 10:25:00 EDT, [...]
[2023-07-30 22:34] LABS: UPreg QC Valid YES; Urine Pregnancy NEGATIVE (NEGATIVE)
[2023-07-30 22:46] LABS: Appearance Urine Error; Bacteria Urine 1+ (None Seen); Color Urine Dark Yellow; Glucose Urine UA Negative (Negative); Hyaline Casts Urine 0-2 /LPF (0-2); Leukocyte Esterase Urine Trace (Negative); Nitrite Urine Negative (Negative); PH 5.5 (5.0-9.0); RBC Urine 0-2 /HPF (0-2); Specific Gravity - Urine 1.015 (1.005-1.025); UMIC TRIGGER UACC YES; Urine Blood Negative (Negative); Urine Ketones Negative (Negative); Urine Protein Negative (Neg-Trace); WBC Urine 0-5 /HPF (0-5)
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
--- NOTE | 2023-07-30 23:29 | PC.NURSE ---
Patient wears CPAP at night at home. Patient's caregiver brought CPAP to ED. Per Dr. Saul and RT OK for the patient to use home CPAP, plan of care updated.
--- NOTE | 2023-07-30 23:54 | PC.NURSE ---
This RN spoke to Dr. Saul and Sommer, ED charge nurse. Patient has been calm, cooperative, no aggressive behavior noted, patient denied SI/HI-per Dr Miranda no need for 1:1 sitter at this time, continue to monitor patient's mental status and behavior. Patient is resting comfortably, eyes closed, RR 18, home CPAP in place, call keller within patient's reach.
[2023-07-31] VITALS (7 sets, daily range): BP systolic 93–123; BP diastolic 50–80; PULSE 59–104; RESP 17–18; TEMP 36.7–36.9; O2SAT 94–99
[2023-07-31 00:49] LABS: Amphetamine Screen Urine Not Detected (Not Detect); Barbiturates, Urine Not Detected (Not Detect); Benzodiazepines Screen Urine Not Detected (Not Detect); Cannabinoid Screen Urine Not Detected (Not Detect); Cocaine Screen Urine Not Detected (Not Detect); Fentanyl, urine Not Detected (Not Detect); Opiate Screen Urine Not Detected (Not Detect); Phencyclidine Screen Urine Not Detected (Not Detect)
--- NOTE | 2023-07-31 09:29 | PC.NURSE ---
pt eating breakfast, staff member from alf at bedside. no pain reported, no distress noted. pt calm and cooperative, behavior non-concerning, will ctm
--- NOTE | 2023-07-31 13:09 | PC.NURSE ---
pt counter caser at bedside, awaiting [facility] health program manager to come and speak to patient before discharge. pt ate breakfast and lunch, brushed teeth. behavior non-concerning. will ctm
== END 2023-07-31 14:19 | disposition home or self-care (01) ==
PROVIDERS: Emergency Provider Emergency Medicine; PCP Nurse Practitioner Family
DX: F41.9 Anxiety disorder, unspecified (principal); G47.33 Obstructive sleep apnea (adult) (pediatric); Z99.89 Dependence on other enabling machines and devices; F84.0 Autistic disorder; G89.29 Other chronic pain; R10.11 Right upper quadrant pain; D49.0 Neoplasm of unspecified behavior of digestive system; Z79.899 Other long term (current) drug therapy
CPT/HCPCS: 36415; 80048; 80307; 81001; 81025; 85027; 99284; 99285; S9485

== ENCOUNTER 2024-05-30 17:38 | Emergency (ER) | payer MEDICARE, MEDICAID, SELFPAY ==
[2024-05-30 17:46] VITALS: BP 112/90; PULSE 120; O2SAT 98
[2024-05-30 18:32] VITALS: BP 108/70; PULSE 120; RESP 20; TEMP 36.5; O2SAT 98; BMI 36.1
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
[2024-05-30 18:38] LABS: MANUAL DIFF FLAG NO
[2024-05-30 18:40] VITALS: BP 108/70; PULSE 120; RESP 16; O2SAT 98
[2024-05-30 18:41] LABS: Basophils Percent Auto 0.4 % (0-2); Eosinophils Absolute Auto 0.2 X10*3/uL (0.0-0.4); Eosinophils Percent Auto 1.6 % (0-4); Hematocrit 40.4 % (37.0-47.0); Hemoglobin 13.8 g/dl (12.0-16.0); Imm Gran Abs Auto 0.02 X10*3/uL (0.00-0.03); Imm Gran Pct Auto 0.2 % (0.0-0.4); Lymphocytes Absolute Auto 4.3 X10*3/uL (1.2-4.9); Mean Corpuscular HGB Conc 34.2 g/dl (31.0-35.0); Mean Corpuscular Hemoglobin 30.2 pg (27.0-33.0); Mean Corpuscular Volume 88.4 fL (80.0-98.0); Mean Platelet Volume 10.2 fL (9.4-12.3); Monocytes Absolute Auto 0.5 X10*3/uL (0.1-1.2); Monocytes Percent Auto 4.5 % (2-11); Neutrophils Percent Auto 54.3 % (45-73); Platelet Count 301 X10*3/uL (160-400); Red Blood Count 4.57 X10*6/uL (4.20-5.50); Red Cell Distribution Width 13.3 % (11.0-16.0); White Blood Count 11.1 X10*3/uL (4.8-10.8)
[2024-05-30 18:41] LABS: Appearance Urine Cloudy; Color Urine Dark Yellow; Glucose Urine UA Negative (Negative); Leukocyte Esterase Urine Negative (Negative); Nitrite Urine Negative (Negative); PH 5.5 (5.0-9.0); Urine Blood Negative (Negative); Urine Ketones Trace mg/dL (Negative); Urine Protein Trace mg/dL (Neg-Trace)
[2024-05-30 19:00] LABS: Ethanol < 10 mg/dL
[2024-05-30 19:03] LABS: Alanine Aminotransferase 27 U/L (0-31); Albumin Level 4.4 g/dL (3.5-5.0); Alkaline Phosphatase 84 U/L (39-117); Anion Gap 15 (12-20); Aspartate Amino Transferase 18 U/L (5-31); Bilirubin Total 0.4 mg/dL (0.0-1.0); Blood Urea Nitrogen 14 mg/dL (9-16); Calcium 9.9 mg/dL (8.4-10.2); Carbon Dioxide 23 mmol/L (22-29); Chloride 108 mmol/L (96-108); Creatinine Clr Calc Pharmacy 109.7; Estimated Glomerular Filt Rate > 60; Glucose Random 96 mg/dL (60-115); Potassium 3.8 mmol/L (3.3-5.1); Sodium 142 mmol/L (135-145); Total Protein 7.4 g/dL (6.5-8.0)
[2024-05-30 19:05] LABS: Amphetamine Screen Urine Not Detected (Not Detect); Barbiturates, Urine Not Detected (Not Detect); Benzodiazepines Screen Urine POSITIVE (Not Detect); Buprenorphine Scr Not Detected (Not Detect); Cannabinoid Screen Urine Not Detected (Not Detect); Cocaine Screen Urine Not Detected (Not Detect); Fentanyl, urine Not Detected (Not Detect); Methadone Screen, Urine Not Detected (Not Detect); Opiate Screen Urine Not Detected (Not Detect); Oxycodone Screen Urine Not Detected (Not Detect); Phencyclidine Screen Urine Not Detected (Not Detect)
[2024-05-30 20:27] LABS: HCG Quantitative < 2 mIU/mL
[2024-05-30 21:37] VITALS: BP 106/58; PULSE 99; RESP 20; TEMP 36.5; O2SAT 97
== END 2024-05-30 21:43 | disposition home or self-care (01) ==
PROVIDERS: Nurse Practitioner Family; Emergency Provider Internal Medicine
DX: F43.9 Reaction to severe stress, unspecified (principal); F91.9 Conduct disorder, unspecified; G47.33 Obstructive sleep apnea (adult) (pediatric); Z79.899 Other long term (current) drug therapy
CPT/HCPCS: 36415; 80053; 80307; 81003; 84702; 85025; 99283; 99284; S9485